=== PATIENT | male | born 1930 | race African-American/Black ===

== ENCOUNTER 2016-03-02 20:01 | Inpatient (IN) ==
[2016-03-02] MEDS ORDERED: *HR* Dextrose 50 % in Water (Syg) 50 ML SYRINGE IVP PRN (21:15)
[2016-03-02] MEDS ORDERED: D5% in Water 1,000 ML IV PRN (21:15)
[2016-03-02] MEDS ORDERED: Dextrose Gel 15 GM PO PRN ×2 (21:15)
[2016-03-02] MEDS ORDERED: Bisacodyl 10 MG RECTAL SUPPOSITORY RC PRN (21:27)
[2016-03-02 22:58] LABS: Bilirubin,Urine Negative (Negative); Blood,Urine Negative (Negative); Clarity,Urine Slightly Cloudy (Clear); Color,Urine Yellow (Yellow); Glucose,Urine (UA) Normal (Normal); Ketones,Urine 15 mg/dL (Negative); Leukocyte Esterase,Urine Negative (Negative); Nitrite,Urine Negative (Negative); PH,Urine 6.5 pH Units (5.0-8.0); Protein,Urine 100 mg/dL (Neg-Trace); Urobilinogen,Urine Normal (Normal)
[2016-03-03 05:53] LABS: Basophils % 0.3 %; Eosinophils # 0.1 K/mcL (0.0-0.6); Eosinophils % 1.4 %; Hematocrit 28.7 % (37.5-50.1); Hemoglobin 8.5 g/dL (12.9-16.9); INR 1.8; Immature Granulocytes % 2.9 % (0-4); Lymphocytes # 0.6 K/mcL (0.6-4.6); Lymphocytes % 7.8 %; Mean Corpuscular HGB Conc 29.6 g/dL (31.6-35.5); Mean Corpuscular Hemoglobin 26.3 pg (28.0-33.3); Mean Corpuscular Volume 88.9 fL (83.0-100.0); Mean Platelet Volume 9.2 fL (9.4-12.4); Monocytes % 12.3 %; Neutrophils # 5.9 K/mcL (1.6-8.9); Platelet Count 235 K/mcL (140-400); Prothrombin Time 20.1 Seconds (9.4-12.1); Red Blood Count 3.23 M/mcL (4.19-5.50); Red Cell Distribution Width 15.7 % (11.5-14.5); Segmented Neutrophils % 75.3 %
[2016-03-03 05:56] LABS: Activated Partial Thrombo Time 28.9 Seconds (26.0-36.0)
[2016-03-03 06:12] LABS: BUN/Creatinine Ratio 12 (6-26); Blood Urea Nitrogen 15 mg/dL (8-26); Calcium 8.7 mg/dL (8.6-10.8); Carbon Dioxide 28 mEq/L (19-29); Chloride 109 mEq/L (98-109); Digoxin 0.8 ng/mL (0.8-2.0); Glucose 157 mg/dL (70-99); Magnesium 1.7 mg/dL (1.6-2.6); Osmolality,Calculated 306 (280-300); Potassium 3.7 mEq/L (3.5-4.5); Sodium 146 mEq/L (136-145); eGFR For African Americans > 60 (> 60); eGFR For Non-African Americans 57 (> 60)
[2016-03-03] MEDS ORDERED: Magnesium Oxide 400 MG TABLET PO SCH (09:00)
[2016-03-03] MEDS ORDERED: Insulin NPH 100 UNIT/ML (x5UNIT) SQ SCH (09:00)
[2016-03-03] MEDS: *HR* Digoxin 0.125 MG TABLET PO SCH (09:25)
[2016-03-03] MEDS: Metoprolol XL (24 HR) Succ 50 MG TAB.ER.24H PO SCH (09:25)
[2016-03-03] MEDS: Diltiazem SR (12hr) 60 MG CAPSULE PO SCH ×2 (09:25→21:40)
[2016-03-03] MEDS: Magnesium Oxide 400 MG TABLET PO SCH (09:26)
[2016-03-03] MEDS: APIXABAN 5 MG TABLET PO SCH ×2 (09:26→21:41)
[2016-03-03] MEDS: *HR* SitaGLIPtin 25 MG TABLET PO SCH (09:26)
[2016-03-03] MEDS: Insulin LISPRO 300 UNITS/3 ML VIAL SQ SCH ×4 (09:27→21:41)
--- NOTE | 2016-03-03 11:00 | Internal Med History&Physical ---
Date of Encounter: 03/03/16 Time of Encounter: 12:20 Assessment and Plan (1) GI bleed Current visit: Yes Status: Acute He had a clipping of the Artery on 1226 2015. He has had 4 blood transfusions. His hemoglobin has been stable. 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 Continue to follow hemoglobin. He is here for rehabilitation due to his deconditioning. PT OT RT and speech therapy consulted Qualifiers: GI bleed type/associated pathology: gastric ulcer Qualified Code(s): K25.4 - Chronic or unspecified gastric ulcer with hemorrhage (2) Acute on chronic systolic congestive heart failure Current visit: No Status: Acute Discharge discharged from [facility] prior to this admission for the GI bleed. Is on a beta jason. His arb has been held due to his hypotension. His Lasix has had to be held to due to his hypotension and renal failure. He is on home oxygen at home and is on oxygen here ef 45-50%. Only not in CHF (3) Atrial fibrillation Current visit: No Status: Chronic He developed A. fib with RVR up at [place] he was placed on digoxin and Cardizem and Toprol he was not anticoagulated in the past due to his risk of a GI bleed. Now that he has developed an acute DVT bilaterally he is on Eliquis Qualifiers: Atrial fibrillation type: paroxysmal Qualified Code(s): I48.0 - Paroxysmal atrial fibrillation (4) COPD (chronic obstructive pulmonary disease) Current visit: No Status: Chronic Not currently an issue he is not on any medication for this. He is a former smoker. He is on oxygen Qualifiers: COPD type: unspecified COPD Qualified Code(s): J44.9 - Chronic obstructive pulmonary disease, unspecified (5) Diabetes mellitus, type 2 Current visit: No Status: Chronic Insulin at [place]. We will continue that we will have the tobacco prevention health educator see him. Normally he would be on a diabetic diet but his appetite is been so poor that he is on a regular diet and frequent whatever he wants Qualifiers: Diabetes mellitus complication status: without complication Diabetes mellitus longterm insulin use: without sustainability engineer use Qualified Code(s): E11.9 - Type 2 diabetes mellitus without complications (6) Hypertension Current visit: No Status: Chronic several medications were held due to the hypotension [place] to the point of being on levophed.. He is off his arb will follow his blood pressures and possibly add back if blood pressures tolerate. Qualifiers: Qualified Code(s): I10 - Essential (primary) hypertension (7) Mixed hyperlipidemia Current visit: Yes Status: Acute Stable continue home medication (8) CHF (congestive heart failure) Current visit: Yes Status: Acute He was discharge in January for an acute CHF exacerbation and his Lasix has been held due to his acute renal failure and hypotension. His blood pressure did not tolerate an CHAPIS inhibitor R. Qualifiers: Congestive heart failure type: combined Congestive heart failure chronicity : chronic Qualified Code(s): I50.42 - Chronic combined systolic (congestive) and diastolic (congestive) heart failure (9) Obesity due to excess calories Current visit: Yes Status: Acute Qualifiers: Obesity severity: morbid Qualified Code(s): E66.01 - Morbid (severe) obesity due to excess calories (10) Depression Current visit: Yes Status: Acute continue His home medication Qualifiers: Depression Type: reactive depression Qualified Code(s): F32.9 - Major depressive disorder, single episode, unspecified (11) Acute blood loss anemia Current visit: Yes Status: Acute Due to the GI bleed gastric ulcer. He received 4 units of blood up at [place]. He has a lot of antibodies in his blood if he needs another transfusion and has to be irradiated. It is hard to get blood for him the total number of [place] they could not transfuse him anymore due to the lack of supply. His blood count has been stable. (12) PIERO (obstructive sleep apnea) Current visit: Yes Status: Acute (13) PUD (peptic ulcer disease) Current visit: Yes Status: Acute He just had an EGD with an artery clipping. Continue PPI (14) CAD (coronary artery disease) Current visit: Yes Status: Acute He is currently without any cardiac symptoms. Qualifiers: Coronary Disease-Associated Artery/Lesion type: [place] artery [place] vs. transplanted heart: [place] heart Associated angina: without angina Qualified Code(s): I25.10 - Atherosclerotic heart disease of [place] coronary artery without angina pectoris (15) OA (osteoarthritis of spine) Current visit: Yes Status: Acute Not a candidate for NSAIDs due to his renal insufficiency and GI bleed. He has a spinal stimulator in place. 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 Check The urine culture. Qualifiers: Prostatic enlargement morphology: unspecified morphology Lower urinary tract symptom presence: symptoms present Qualified Code(s): N40.1 - Benign prostatic hyperplasia with lower urinary tract symptoms (17) Aortic stenosis Current visit: Yes Status: Acute Qualifiers: Cardiac valve disease etiology: etiology unspecified Qualified Code(s): I35.0 - Nonrheumatic aortic (valve) stenosis (18) Ischemia of left lower extremity Current visit: Yes Status: Acute Is on a heparin drip at the [facility]. Vascular surgery was consult that there was nothing that they could do for further intervention due to his comorbidities. he was transitioned to eliquis (19) AVM (arteriovenous malformation) of colon Current visit: Yes Status: Acute he did Not have lower endoscopy this past admission (20) Macular degeneration Current visit: Yes Status: Acute Internal Medicine - H&P: HPI Chief complaint: i want to get home, here for rehab Admitted From: Hospital to Hospital Transfer Plans for Post Hospital Care: Home History of present illness: Mr. France is a 85 year old male With a history of anemia due to chronic GI blood loss. He presents from [place] after a prolonged course of a GI bleed. In the office in January found to have a hemoglobin of 6 it was arranged for outpatient transfusion at that time, but he has a lot of antibodies in his blood and it is hard to type and cross him. The blood was supposed to come the next day from [place] when he developed bright red blood per rectum. at That he was sent to the emergency room and transferred to [place] for further care. He had 4 units of packed red blood cells they were having difficulty getting transfusions due to his antibody in the low blood supply. He had an EGD on 02/15 that showed a gastric ulcer and it was the artery was clipped at that time. He was on a PPI. He has a history of AV malformations of the colon and has undergone a colon resection for those in the past. Not have a colonoscopy this admission. While there he developed a right common femoral DVT. He had an IVC filter placed on February 18. He was found to have edema of the left lower extremity and was found after the IVC filter to have a left external iliacs acute DVT. at Time he had undergone the clipping of the gastric artery and his hemoglobin was stable and it was felt necessary to further anticoagulate him for the DVT that progressed with the IVC filter . he was placed on a heparin drip because he also had ischemia of the left lower extremity. He was transitioned over to Eliqu. Hemoglobin has remained stable at 8.1,8.7,8.5. He has become severely deconditioned he has trouble getting from the bed to the chair. Recommend that he come here for PT OT. Difficulty swallowing and they changed his diet to soft and chopped meats. He had a speech evaluation today that was normal and he was advanced to a regular diet. His appetite has not been great palliative care was consult to Dr. Francesca kenny and him made him DNR CC arrest. Decided not to do a PEG tube. He was also hypotensive up at [place] and several of his blood pressure medicines were held and he was on levo fed and while on that he developed the lower limb ischemia on the left had A. fib with RVR up at [place] as well which was controlled with metoprolol and digoxin and Cardizem Past Med Surg Social Fam HX - Past Medical History Medical history: arthritis (of the spine with an implanted stimulator), atrial fibrillation, CHF, COPD, coronary artery disease, DVT (01/2016 r com femoral, had ivc filter then left external iliac), diabetes, GERD, GI bleed (bleeding ulcer clipped 02/16/16, hx of avm of colon), hyperlipidemia, hypertension, peripheral artery disease (left lower ext), renal disease, valvular heart disease (aortic stenosis), other (macular degeneration, obesity, anemia due to the gi bleed) Psychiatric history: depression - Past Surgical History Surgical History: colectomy (for avm and bleeding), IVC Filter (02/19/16), pacemaker (02/16/16 egd with gastric ulcer clipping, 01/05/15 spinal stimulator) - Social History Smoking Status: Former smoker Smokeless Tobacco Status: No Alcohol use: rarely Drug use: none - Family History Mother Living Status: Cause of : cerebral hemorrhage Father Living Status: Age at : 87 Internal Medicine - H&P: Meds Albuterol Sulfate [Albuterol Inhaler] 2 puff IH Q4H PRN 01/15/16 [History] Amlodipine Besylate 10 mg PO DAILY 01/15/16 [History] Atorvastatin Calcium [Lipitor] 20 mg PO DAILY 01/15/16 [History] Citalopram Hydrobromide [Citalopram HBr] 20 mg PO DAILY 01/15/16 [History] Ferrous Sulfate 325 mg PO TID 01/15/16 [History] Glimepiride [Amaryl] 2 mg PO QAM 01/15/16 [History] Losartan Potassium [Cozaar] 50 mg PO BID 01/15/16 [History] Metoprolol Succinate 100 mg PO DAILY 01/15/16 [History] Omeprazole [PriLOSEC] 20 mg PO BID 01/15/16 [History] Potassium Chloride [Klor-Con Sprinkle] 8 meq PO DAILY 01/15/16 [History] Sitagliptin Phosphate [Januvia] 50 mg PO DAILY 01/15/16 [History] Diltiazem [Cardizem] 60 mg PO Q6HR #120 tablet 02/06/16 [Rx] Furosemide [Lasix] 40 mg PO DAILY 60 Days 02/06/16 [Rx] Levofloxacin 500 mg PO DAILY #3 tablet 02/06/16 [Rx] Dulcolax 10 mg DAILY PRN 03/03/16 [History] Eliquis 5 mg PO BID 03/03/16 [History] Insulin LISPRO [Humalog Kwikpen U-100] 1 - 30 unit SQ ACHS 03/03/16 [History] Insulin NPH [HumuLIN NPH] 5 units SQ BID 03/03/16 [History] Magnesium Oxide [Magnesium] 400 mg PO 03/03/16 [History] Pantoprazole Sodium [Protonix] 40 mg PO DAILY 03/03/16 [History] Allergies aspirin [ASA] Allergy (Verified 02/02/16 04:08) Nose Bleed NSAIDS (Non-Steroidal Anti-Inflamma Adverse Reaction (Unknown, Verified 04:08) Nose Bleed bleeding nsaids Allergy (Uncoded 02/02/16 04:08) Nose Bleed All Systems PM: A 10-system review of systems was performed and is negative for pertinent findings except as documented above in the HPI. - Constitutional Constitutional: anorexia, fatigue, lethargy, weakness (generalized), weight loss - EENT Eyes: no change in vision Nose, mouth and throat: no sore throat - Cardiovascular Cardiovascular ROS IM: dyspnea (bseline), no chest pain, no lightheadedness, no palpitations, no syncope - Respiratory Respiratory: no cough, no wheezing - Gastrointestinal Gastrointestinal: melena (dark with the iron), no abdominal pain, no constipation, no diarrhea, no hematochezia (since [place]), no nausea, no vomiting - Genitourinary Genitourinary ROS male: urinary incontinence, no dysuria, no urinary frequency - Musculoskeletal Musculoskeletal ROS IM: arthralgias (his left did hurt it is not hurting now) - Integumentary Integumentary IM: sores (on the left leg seeping), no rash - Neurological Neurological ROS: no dizziness, no frequent falls - Psychiatric Psychiatric: irritability - Constitutional Vitals: Temp Pulse Resp BP Pulse Ox 98.1 F 105 18 147/74 94 L 03/03/16 07:00 03/03/16 07:00 03/03/16 07:00 03/03/16 07:00 03/03/16 07:00 General appearance: Present: A&O X 3, morbidly obese (but obvious weight loss), answers questions appropriately (but he has a very dry sense of humor) - Head Head exam: Present: atraumatic, normocephalic - Eye Eye exam: Present: EOMI, PERRL, sclera anicteric - ENT ENT exam: Present: mucous membranes moist - Respiratory Respiratory exam: Present: CTAB - Cardiovascular Cardiovascular exam: Present: irregular rhythm, systolic murmur - GI/Abdominal GI/Abdominal exam: Present: normal bowel sounds, soft, no peritoneal signs. Absent: distended (exam limited bybody habitius), guarding, mass, rebound, tenderness - Extremities Exam Extremities exam: Present: normal capillary refill, pedal edema (left >right), warm (both are warm today. it was noted to be a cold left ext at [place]) - Skin Skin exam: Present: vesicles (on the left leg with large skin sloughing 10 cm x 2 and several bulla on the left leg). Absent: rash Internal Med - H&P Results - Labs CBC & Chem 7: 03/03/16 05:25 03/03/16 05:25 Labs: Short CBC 03/03/16 Range/Units 05:25 WBC 7.8 (4.3-11.1) K/mcL Hgb 8.5 L (12.9-16.9) g/dL Hct 28.7 L (37.5-50.1) % Plt Count 235 (140-400) K/mcL Neutrophils # 5.9 (1.6-8.9) K/mcL BMP 03/03/16 05:25 Sodium 146 H Potassium 3.7 Chloride 109 Carbon Dioxide 28 BUN 15 Creatinine 1.21 Glucose 157 H Calcium 8.7 Urine 03/02/16 Range/Units 21:14 Urine Color Yellow (Yellow) Urine Clarity Slightly Cloudy A (Clear) Urine pH 6.5 (5.0-8.0) pH Units Ur Specific [place] 1.020 (1.010-1.025) Urine Protein 100 H (Neg-Trace) mg/dL Urine Glucose (UA) Normal (Normal) mg/dL
--- NOTE | 2016-03-04 07:43 | Internal Med Progress Note ---
Date of Encounter: 03/04/16 Time of Encounter: 07:43 - Assessment and plan (1) GI bleed Current Visit: Yes Status: Acute Assessment and plan: History of recent upper G.I. bleed, on PPI. Hemoglobin has been stable. Recheck on Monday. No melena or hematochezia Qualifiers: GI bleed type/associated pathology: gastric ulcer Qualified Code(s): K25.4 - Chronic or unspecified gastric ulcer with hemorrhage (2) Acute on chronic systolic congestive heart failure Current Visit: No Status: Chronic Assessment and plan: Patient has on a beta jason, his ARB was held data hypotension. Lasix was held due to hypotension and renal failure. Oxygen saturations are in the 90s typically on room air. Lungs are clear and no obvious signs of congestive heart failure. No angina. (3) Atrial fibrillation Current Visit: Yes Status: Chronic Assessment and plan: Atrial fibrillation. Rate controlled with Lanoxin and Cardizem and Toprol. Previously was not anticoagulated because of G.I. bleed and anemia, now has acute DVT and is now on Eliquis Qualifiers: Atrial fibrillation type: paroxysmal Qualified Code(s): I48.0 - Paroxysmal atrial fibrillation (4) COPD (chronic obstructive pulmonary disease) Current Visit: Yes Status: Chronic Assessment and plan: Chronic COPD, a former smoker. Typically on room air. No acute pulmonary symptoms and lungs are clear. Qualifiers: COPD type: unspecified COPD Qualified Code(s): J44.9 - Chronic obstructive pulmonary disease, unspecified (5) Diabetes mellitus, type 2 Current Visit: Yes Status: Chronic Assessment and plan: Dr. Teague wishes for him to be a regular diet without restriction because of his poor appetite. Blood sugars are being followed and are reasonable. Qualifiers: Diabetes mellitus complication status: without complication Diabetes mellitus keno terminal operator insulin use: without keno terminal operator use Qualified Code(s): E11.9 - Type 2 diabetes mellitus without complications (6) Hypertension Current Visit: Yes Status: Chronic Assessment and plan: Hypertension is under good control. No hypotension currently. Qualifiers: Qualified Code(s): I10 - Essential (primary) hypertension (7) Mixed hyperlipidemia Current Visit: Yes Status: Chronic (8) CHF (congestive heart failure) Current Visit: Yes Status: Chronic Assessment and plan: History of congestive heart failure exacerbation, but Lasix and some meds have been held because a renal failure and hypotension. No obvious congestive heart failure currently. Qualifiers: Congestive heart failure type: combined Congestive heart failure chronicity : chronic Qualified Code(s): I50.42 - Chronic combined systolic (congestive) and diastolic (congestive) heart failure (9) Obesity due to excess calories Current Visit: Yes Status: Chronic Qualifiers: Obesity severity: morbid Qualified Code(s): E66.01 - Morbid (severe) obesity due to excess calories (10) Depression Current Visit: Yes Status: Chronic Qualifiers: Depression Type: reactive depression Qualified Code(s): F32.9 - Major depressive disorder, single episode, unspecified (11) Acute blood loss anemia Current Visit: Yes Status: Acute Assessment and plan: No obvious re-bleed. (12) PIERO (obstructive sleep apnea) Current Visit: Yes Status: Chronic (13) PUD (peptic ulcer disease) Current Visit: Yes Status: Acute Assessment and plan: No acute symptoms. Recent EGD and artery clipping. Continue PPI. (14) CAD (coronary artery disease) Current Visit: Yes Status: Acute Assessment and plan: No angina or congestive heart failure noted. Atrial fibrillation is rate controlled. Qualifiers: Coronary Disease-Associated Artery/Lesion type: [place] artery [place] vs. transplanted heart: [place] heart Associated angina: without angina Qualified Code(s): I25.10 - Atherosclerotic heart disease of [place] coronary artery without angina pectoris (15) OA (osteoarthritis of spine) Current Visit: Yes Status: Chronic Assessment and plan: Patient has a spinal stimulator as he is not a candidate for an NSAID due to renal insufficiency in G.I. bleed. 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 Urine test was negative Qualifiers: Prostatic enlargement morphology: unspecified morphology Lower urinary tract symptom presence: symptoms present Qualified Code(s): N40.1 - Benign prostatic hyperplasia with lower urinary tract symptoms (17) Aortic stenosis Current Visit: Yes Status: Chronic Assessment and plan: History of nonrheumatic aortic valve stenosis. No CHF for angina. Qualifiers: Cardiac valve disease etiology: etiology unspecified Qualified Code(s): I35.0 - Nonrheumatic aortic (valve) stenosis (18) Ischemia of left lower extremity Current Visit: Yes Status: Acute Assessment and plan: Left lower extremity is edematous, continued gauze wrap which is clean and dry. I did not evaluate his leg. Has been seen by wound clinic. Both feet are warm and dry (19) AVM (arteriovenous malformation) of colon Current Visit: Yes Status: Acute (20) Macular degeneration Current Visit: Yes Status: Acute (21) Physical deconditioning Current Visit: Yes Status: Acute Assessment and plan: He continues with PT, OT and recreational therapy as well as needing longterm because of deconditioning. Continue the same for now. - Subjective Interval history: Patient states that he slept well last night. He denies any cardiac or respiratory symptoms. He denies any significant pain in his legs. He seems to be eating well. He states he is comfortable. - Constitutional Vitals: Temp Pulse Resp BP Pulse Ox 98.7 F 78 18 151/53 93 L 03/04/16 07:21 03/04/16 07:21 03/04/16 07:21 03/04/16 07:21 03/04/16 07:21 General appearance: Present: A&O X 3, morbidly obese, answers questions appropriately - Respiratory Respiratory exam: Present: CTAB - Cardiovascular Cardiovascular exam: Present: irregular rhythm, +S1, +S2, systolic murmur (2-3/ 6 systolic murmur at the outlet and left sternal border) - GI/Abdominal GI/Abdominal exam: Present: soft. Absent: hepatomegaly, tenderness - Extremities Exam Additional comments: Left lower extremity is swollen compared to the right, mild pitting edema in the pre-tibial and dorsal foot areas. Gauze wrap on the mid-tibial region, I did not evaluate the wound today. Both feet are warm and dry. No localizing tenderness. No skin breakdown noted. Right lower extremity appears normal and no calf tenderness. Internal Medicine: Result - Labs CBC & Chem 7: 03/03/16 05:25 03/03/16 05:25 Labs: BMP 03/03/16 05:25 Sodium 146 H Potassium 3.7 Chloride 109 Carbon Dioxide 28 BUN 15 Creatinine 1.21 Glucose 157 H Calcium 8.7 - ABG Interpretation ABG results: PT/INR, D-dimer PT 20.1 Seconds (9.4-12.1) H 03/03/16 05:25 Consult Discharge Plan - Plan Referrals: Shira Teague MD [Primary Care Provider] -
[2016-03-04] MEDS: Magnesium Oxide 400 MG TABLET PO SCH (08:32)
[2016-03-04] MEDS: Insulin LISPRO 300 UNITS/3 ML VIAL SQ SCH ×4 (08:32→22:00)
[2016-03-04] MEDS: APIXABAN 5 MG TABLET PO SCH ×2 (08:32→22:04)
[2016-03-04] MEDS: *HR* SitaGLIPtin 25 MG TABLET PO SCH (08:33)
[2016-03-04] MEDS: Metoprolol XL (24 HR) Succ 50 MG TAB.ER.24H PO SCH (08:33)
[2016-03-04] MEDS: Diltiazem SR (12hr) 60 MG CAPSULE PO SCH ×2 (08:33→22:05)
[2016-03-04] MEDS: *HR* Digoxin 0.125 MG TABLET PO SCH (08:33)
[2016-03-05] MEDS: Insulin LISPRO 300 UNITS/3 ML VIAL SQ SCH ×4 (08:24→20:55)
[2016-03-05] MEDS: *HR* SitaGLIPtin 25 MG TABLET PO SCH (08:25)
[2016-03-05] MEDS: *HR* Digoxin 0.125 MG TABLET PO SCH (08:25)
[2016-03-05] MEDS: Diltiazem SR (12hr) 60 MG CAPSULE PO SCH ×2 (08:25→20:56)
[2016-03-05] MEDS: Magnesium Oxide 400 MG TABLET PO SCH (08:26)
[2016-03-05] MEDS: APIXABAN 5 MG TABLET PO SCH ×2 (08:26→20:56)
[2016-03-05] MEDS: Metoprolol XL (24 HR) Succ 50 MG TAB.ER.24H PO SCH (08:26)
[2016-03-05] MEDS ORDERED: Insulin NPH 300 UNIT/3 ML per UNIT SQ ONE (11:22)
--- NOTE | 2016-03-05 13:59 | Internal Med Progress Note ---
Date of Encounter: 03/05/16 Time of Encounter: 13:15 - Assessment and plan (1) AVM (arteriovenous malformation) of colon Current Visit: Yes Status: Acute Assessment and plan: No signs of active bleeding. He is scheduled get repeat labs in 8 hours. (2) Acute blood loss anemia Current Visit: Yes Status: Acute Assessment and plan: Check labs as above. (3) CAD (coronary artery disease) Current Visit: Yes Status: Acute Assessment and plan: He denies symptoms currently. Qualifiers: Coronary Disease-Associated Artery/Lesion type: [place] artery [place] vs. transplanted heart: [place] heart Associated angina: without angina Qualified Code(s): I25.10 - Atherosclerotic heart disease of [place] coronary artery without angina pectoris (4) GI bleed Current Visit: Yes Status: Acute Assessment and plan: Check labs as above. Today with me he denies hematemesis, melena, or gross blood per rectum. Qualifiers: GI bleed type/associated pathology: gastric ulcer Qualified Code(s): K25.4 - Chronic or unspecified gastric ulcer with hemorrhage (5) Ischemia of left lower extremity Current Visit: Yes Status: Acute (6) PUD (peptic ulcer disease) Current Visit: Yes Status: Acute Assessment and plan: No evidence of acute bleeding. (7) Physical deconditioning Current Visit: Yes Status: Acute (8) Atrial fibrillation Current Visit: Yes Status: Chronic Assessment and plan: Rate is controlled on digoxin, diltiazem and metoprolol. To auscultation his rhythm sounds regular. Qualifiers: Atrial fibrillation type: paroxysmal Qualified Code(s): I48.0 - Paroxysmal atrial fibrillation (9) CHF (congestive heart failure) Current Visit: Yes Status: Chronic Qualifiers: Congestive heart failure type: combined Congestive heart failure chronicity : chronic Qualified Code(s): I50.42 - Chronic combined systolic (congestive) and diastolic (congestive) heart failure (10) COPD (chronic obstructive pulmonary disease) Current Visit: Yes Status: Chronic Assessment and plan: Lungs are clear today. He is breathing comfortably on room air. O2 sat is 93%. Qualifiers: COPD type: unspecified COPD Qualified Code(s): J44.9 - Chronic obstructive pulmonary disease, unspecified (11) Depression Current Visit: Yes Status: Chronic Assessment and plan: Continue current medication. I encouraged him that he is making good progress at this point in the hope is that he'll go home. Qualifiers: Depression Type: reactive depression Qualified Code(s): F32.9 - Major depressive disorder, single episode, unspecified (12) Diabetes mellitus, type 2 Current Visit: Yes Status: Chronic Assessment and plan: Blood sugars are 172 and 181. Tick 80% of his breakfast today which is an improvement. Continue NPH, lispro and sitagliptin. Qualifiers: Diabetes mellitus complication status: without complication Diabetes mellitus half-way insulin use: without casket assembler metal use Qualified Code(s): E11.9 - Type 2 diabetes mellitus without complications (13) Hypertension Current Visit: Yes Status: Chronic Assessment and plan: Blood pressures 155/63 and 119/62 are acceptable. Qualifiers: Qualified Code(s): I10 - Essential (primary) hypertension (14) PIERO (obstructive sleep apnea) Current Visit: Yes Status: Chronic (15) Pneumonia Current Visit: No Status: Acute Assessment and plan: Lungs are clear. He has completed his course of Levaquin. Qualifiers: Pneumonia type: due to unspecified organism Laterality: bilateral Lung location: lower lobe of lung Qualified Code(s): J18.9 - Pneumonia, unspecified organism (16) Acute on chronic systolic congestive heart failure Current Visit: No Status: Chronic Assessment and plan: This appears controlled on his current medications. (17) Acute kidney injury Current Visit: No Status: Resolved (18) Acute respiratory failure with hypoxia Current Visit: No Status: Resolved Assessment and plan: O2 sats are acceptable. - Time Spent With Patient Greater than 35 minutes - Subjective Interval history: No complaints other than that he wants to go home. Denies palpitations, SOB or chest discomfort. Left leg dressing was changed by night warehouse manager, dayshift nurse received the report that there was some drainage but no signs of infection. Nursing reported the 880% of his breakfast. I spoke with the therapist and his nurse at the bedside and they say he is definitely making progress with his physical therapy. His mentation has been clear. Fingerstick blood sugars been 172 and 181. Heart rate's been controlled at 69 and 71 bpm. - Constitutional Vitals: Temp Pulse Resp BP Pulse Ox 98.3 F 69 18 119/62 93 L 03/05/16 11:28 03/05/16 12:14 03/05/16 12:14 03/05/16 12:14 03/05/16 12:14 General appearance: Present: A&O X 3, morbidly obese, no acute distress, answers questions appropriately - Head Head exam: Present: atraumatic, normocephalic - Respiratory Respiratory exam: Present: CTAB. Absent: accessory muscle use, rales, rhonchi, wheezes - Cardiovascular Cardiovascular exam: Present: RRR, +S1, +S2, systolic murmur. Absent: diastolic murmur, gallop, rubs Additional comments: Rhythm sounds regular to auscultation. He has a 3/6 systolic ejection murmur best heard at the right upper sternal border with radiation toward the carotids consistent with his aortic stenosis. - GI/Abdominal GI/Abdominal exam: Present: normal bowel sounds, soft, no peritoneal signs. Absent: distended, tenderness - Extremities Exam Extremities exam: Present: pedal edema, warm. Absent: calf tenderness, cyanotic , tenderness Additional comments: He has significant pitting edema to the left lower extremity. He has a clean dressing distally on the left lower extremity with no fluid visible in the dressing material having seeped through. - Neurological Exam Neurological exam: Present: oriented X3 (He is a bit unhappy, expressing that he really wants to go home. ), no focal deficits. Absent: pronater drift, facial droop, speech deficit Internal Medicine: Result - Labs CBC & Chem 7: 03/03/16 05:25 03/03/16 05:25 - ABG Interpretation ABG results: PT/INR, D-dimer PT 20.1 Seconds (9.4-12.1) H 03/03/16 05:25 Consult Discharge Plan - Plan Referrals: Shira Teague MD [Primary Care Provider] -
[2016-03-06] MEDS: Insulin LISPRO 300 UNITS/3 ML VIAL SQ SCH ×4 (07:57→21:01)
[2016-03-06] MEDS: Metoprolol XL (24 HR) Succ 50 MG TAB.ER.24H PO SCH (08:09)
[2016-03-06] MEDS: Diltiazem SR (12hr) 60 MG CAPSULE PO SCH ×2 (08:09→21:11)
[2016-03-06] MEDS: APIXABAN 5 MG TABLET PO SCH ×2 (08:10→21:11)
[2016-03-06] MEDS: *HR* SitaGLIPtin 25 MG TABLET PO SCH (08:10)
[2016-03-06] MEDS: *HR* Digoxin 0.125 MG TABLET PO SCH (08:10)
--- NOTE | 2016-03-06 12:31 | Internal Med Progress Note ---
Date of Encounter: 03/06/16 Time of Encounter: 12:15 - Assessment and plan (1) AVM (arteriovenous malformation) of colon Current Visit: Yes Status: Acute (2) Acute blood loss anemia Current Visit: Yes Status: Acute Assessment and plan: Check labs in a.m. No signs of further bleeding. (3) CAD (coronary artery disease) Current Visit: Yes Status: Acute Assessment and plan: He denies symptoms currently. Qualifiers: Coronary Disease-Associated Artery/Lesion type: [place] artery [place] vs. transplanted heart: [place] heart Associated angina: without angina Qualified Code(s): I25.10 - Atherosclerotic heart disease of [place] coronary artery without angina pectoris (4) GI bleed Current Visit: Yes Status: Acute Assessment and plan: Check labs as above. Today with me he denies hematemesis, melena, or gross blood per rectum. Qualifiers: GI bleed type/associated pathology: gastric ulcer Qualified Code(s): K25.4 - Chronic or unspecified gastric ulcer with hemorrhage (5) Ischemia of left lower extremity Current Visit: Yes Status: Acute (6) PUD (peptic ulcer disease) Current Visit: Yes Status: Acute (7) Physical deconditioning Current Visit: Yes Status: Acute Assessment and plan: He is making good progress with therapy. I am told that social work is considering prison placement and is exploring that option. (8) Atrial fibrillation Current Visit: Yes Status: Chronic Assessment and plan: Rate is controlled on his current medications. Qualifiers: Atrial fibrillation type: paroxysmal Qualified Code(s): I48.0 - Paroxysmal atrial fibrillation (9) CHF (congestive heart failure) Current Visit: Yes Status: Chronic Assessment and plan: Respiratory symptoms are well controlled. Edema is at baseline. Qualifiers: Congestive heart failure type: combined Congestive heart failure chronicity : chronic Qualified Code(s): I50.42 - Chronic combined systolic (congestive) and diastolic (congestive) heart failure (10) COPD (chronic obstructive pulmonary disease) Current Visit: Yes Status: Chronic Assessment and plan: Tolerating room air well. Pulmonary exam is good. Qualifiers: COPD type: unspecified COPD Qualified Code(s): J44.9 - Chronic obstructive pulmonary disease, unspecified (11) Depression Current Visit: Yes Status: Chronic Assessment and plan: Mood is improved today, he is more upbeat. Qualifiers: Depression Type: reactive depression Qualified Code(s): F32.9 - Major depressive disorder, single episode, unspecified (12) Diabetes mellitus, type 2 Current Visit: Yes Status: Chronic Assessment and plan: Blood sugars are well controlled on current meds. Qualifiers: Diabetes mellitus complication status: without complication Diabetes mellitus custodial insulin use: without terminal gauger supervisor use Qualified Code(s): E11.9 - Type 2 diabetes mellitus without complications (13) Hypertension Current Visit: Yes Status: Chronic Assessment and plan: Blood pressure is at goal at 136/51. Qualifiers: Qualified Code(s): I10 - Essential (primary) hypertension (14) PIERO (obstructive sleep apnea) Current Visit: Yes Status: Chronic (15) Pneumonia Current Visit: No Status: Acute Qualifiers: Pneumonia type: due to unspecified organism Laterality: bilateral Lung location: lower lobe of lung Qualified Code(s): J18.9 - Pneumonia, unspecified organism (16) Acute on chronic systolic congestive heart failure Current Visit: No Status: Chronic (17) DVT (deep venous thrombosis) Current Visit: Yes Status: Acute Assessment and plan: Continue Eliquis. Qualifiers: DVT location: lower extremity Affected thrombotic vein of extremity: femoral Laterality: right Chronicity: acute Qualified Code(s): I82.411 - Acute embolism and thrombosis of right femoral vein - Time Spent With Patient 25 - 35 minutes - Subjective Interval history: .He has no complaints today. He says he is doing well. He tells me his appetite is good. He denies shortness of breath even with his O2 sat at 90%. He states he 's been on room air since I saw him yesterday, at home he only occasionally uses his nasal O2. he denies palpitations or chest discomfort. He is not aware of any upper or lower signs of GI bleeding such as hematemesis, melena or blood per rectum. He feels his therapy is going well. Fingerstick blood sugars have been 136, 162, 158. Blood pressure is good at 136/51. Pulse by nursing has been noted to be 70 and then 74 bpm and regular. O2 sats of 90 in the 98% on room air. He's had a bowel movement yesterday and today. Lispro sliding scale coverage was 0, 2, and 2 units. He is on NPH only 5 units. - Constitutional Vitals: Temp Pulse Resp BP Pulse Ox 98.4 F 74 16 136/51 98 03/06/16 07:00 03/06/16 11:01 03/06/16 07:00 03/06/16 07:00 03/06/16 11:01 General appearance: Present: cooperative, A&O X 3, morbidly obese, no acute distress, answers questions appropriately Exam: He is more upbeat and pleasant today. He is eating his lunch and has eaten pretty much everything on the tray. - Respiratory Respiratory exam: Present: CTAB. Absent: accessory muscle use, rales, respiratory distress, rhonchi, wheezes - Cardiovascular Cardiovascular exam: Present: RRR, +S1, +S2, systolic murmur. Absent: diastolic murmur, gallop, irregular rhythm, rubs Additional comments: 3 out of 6 right upper sternal border murmur unchanged from yesterday. - Extremities Exam Extremities exam: Present: pedal edema, warm, radial pulses palpable and symetrical. Absent: calf tenderness, cyanotic Additional comments: He has mild to moderate pitting edema in the right lower extremity. Left lower extremity has a lot more edema is definitely larger than the right side. Dressing still intact and clean. Exam appears pretty much unchanged from yesterday. Internal Medicine: Result - Labs CBC & Chem 7: 03/03/16 05:25 03/03/16 05:25 - ABG Interpretation ABG results: PT/INR, D-dimer PT 20.1 Seconds (9.4-12.1) H 03/03/16 05:25 Consult Discharge Plan - Plan Referrals: Shira Teague MD [Primary Care Provider] -
[2016-03-07 06:13] LABS: Basophils % 0.5 %; Eosinophils # 0.3 K/mcL (0.0-0.6); Hematocrit 25.8 % (37.5-50.1); Hemoglobin 7.9 g/dL (12.9-16.9); Immature Granulocytes % 2.6 % (0-4); Lymphocytes # 0.7 K/mcL (0.6-4.6); Lymphocytes % 8.9 %; Mean Corpuscular HGB Conc 30.6 g/dL (31.6-35.5); Mean Corpuscular Hemoglobin 26.2 pg (28.0-33.3); Mean Corpuscular Volume 85.4 fL (83.0-100.0); Mean Platelet Volume 9.3 fL (9.4-12.4); Monocytes # 0.9 K/mcL (0.0-1.3); Monocytes % 10.5 %; Neutrophils # 6.2 K/mcL (1.6-8.9); Nucleated Red Blood Cells 0.2 /100 WBC (0); Platelet Count 262 K/mcL (140-400); Red Blood Count 3.02 M/mcL (4.19-5.50); Red Cell Distribution Width 15.5 % (11.5-14.5); Segmented Neutrophils % 74.5 %
[2016-03-07 06:21] LABS: BUN/Creatinine Ratio 13 (6-26); Blood Urea Nitrogen 17 mg/dL (8-26); Calcium 8.8 mg/dL (8.6-10.8); Carbon Dioxide 25 mEq/L (19-29); Chloride 109 mEq/L (98-109); Glucose 147 mg/dL (70-99); Magnesium 1.6 mg/dL (1.6-2.6); Osmolality,Calculated 298 (280-300); Potassium 3.7 mEq/L (3.5-4.5); Sodium 142 mEq/L (136-145); eGFR For African Americans > 60 (> 60); eGFR For Non-African Americans 50 (> 60)
--- NOTE | 2016-03-07 07:13 | Internal Med Progress Note ---
Date of Encounter: 03/07/16 Time of Encounter: 07:06 - Assessment and plan (1) GI bleed Current Visit: Yes Status: Acute Assessment and plan: History of G.I. bleed in his count has been stable in the 8 g range, now 7.9. No active bleeding sites noted. Vitals are stable. Will recheck and follow. Qualifiers: GI bleed type/associated pathology: gastric ulcer Qualified Code(s): K25.4 - Chronic or unspecified gastric ulcer with hemorrhage (2) Acute on chronic systolic congestive heart failure Current Visit: No Status: Chronic Assessment and plan: His weight has been stable since admission (I believe the admission weight was an error). He appears to be less edematous and left lower extremity. His lungs are clear. No obvious congestive heart failure. (3) Atrial fibrillation Current Visit: Yes Status: Chronic Assessment and plan: Atrial fibrillation is rate controlled. He is on Eliquis for DVT Qualifiers: Atrial fibrillation type: paroxysmal Qualified Code(s): I48.0 - Paroxysmal atrial fibrillation (4) COPD (chronic obstructive pulmonary disease) Current Visit: Yes Status: Chronic Assessment and plan: His lungs are clear, no dyspnea, and has only occasional supplemental oxygen requirements Qualifiers: COPD type: unspecified COPD Qualified Code(s): J44.9 - Chronic obstructive pulmonary disease, unspecified (5) Diabetes mellitus, type 2 Current Visit: Yes Status: Chronic Assessment and plan: Sugars have been under good control typically in the 100s. Qualifiers: Diabetes mellitus complication status: without complication Diabetes mellitus snf insulin use: without snf use Qualified Code(s): E11.9 - Type 2 diabetes mellitus without complications (6) Hypertension Current Visit: Yes Status: Chronic Assessment and plan: His blood pressure is under good control. Previously he had hypotension in [place]. His Lasix and amlodipine was held. I have not restarted either one, though he may need the Lasix for edema control restarted. Qualifiers: Qualified Code(s): I10 - Essential (primary) hypertension (7) Mixed hyperlipidemia Current Visit: Yes Status: Chronic (8) CHF (congestive heart failure) Current Visit: Yes Status: Chronic Assessment and plan: No angina or CHF noted. Qualifiers: Congestive heart failure type: combined Congestive heart failure chronicity : chronic Qualified Code(s): I50.42 - Chronic combined systolic (congestive) and diastolic (congestive) heart failure (9) Obesity due to excess calories Current Visit: Yes Status: Chronic Qualifiers: Obesity severity: morbid Qualified Code(s): E66.01 - Morbid (severe) obesity due to excess calories (10) Depression Current Visit: Yes Status: Chronic Qualifiers: Depression Type: reactive depression Qualified Code(s): F32.9 - Major depressive disorder, single episode, unspecified (11) Acute blood loss anemia Current Visit: Yes Status: Acute Assessment and plan: His hemoglobin dipped slightly to 7.9. Will recheck tomorrow. (12) PIERO (obstructive sleep apnea) Current Visit: Yes Status: Chronic (13) PUD (peptic ulcer disease) Current Visit: Yes Status: Acute (14) CAD (coronary artery disease) Current Visit: Yes Status: Acute Assessment and plan: No angina or CHF. Qualifiers: Coronary Disease-Associated Artery/Lesion type: [place] artery [place] vs. 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, lumbar region (16) BPH (benign prostatic hypertrophy) Current Visit: Yes Status: Chronic Qualifiers: Prostatic enlargement morphology: unspecified morphology Lower urinary tract symptom presence: symptoms present Qualified Code(s): N40.1 - Benign prostatic hyperplasia with lower urinary tract symptoms (17) Aortic stenosis Current Visit: Yes Status: Chronic Qualifiers: Cardiac valve disease etiology: etiology unspecified Qualified Code(s): I35.0 - Nonrheumatic aortic (valve) stenosis (18) Ischemia of left lower extremity Current Visit: Yes Status: Acute Assessment and plan: Left lower extremity is warm and dry. He denies any pain. (19) AVM (arteriovenous malformation) of colon Current Visit: Yes Status: Acute (20) Macular degeneration Current Visit: Yes Status: Acute (21) Physical deconditioning Current Visit: Yes Status: Acute Assessment and plan: Reportedly he is advancing with his PT and OT. Continue the same. - Subjective Interval history: Patient denies any chest pain, shortness of breath, abdominal pain, melena, blood per rectum. He said yesterday he was out of bed despite not having physical therapy on Monday. He has no complaints from me. - Constitutional Vitals: Temp Pulse Resp BP Pulse Ox 98.7 F 82 14 139/67 92 L 03/06/16 19:00 03/06/16 19:00 03/06/16 19:00 03/06/16 19:00 03/06/16 19:00 General appearance: Present: cooperative, A&O X 3, morbidly obese, no acute distress, answers questions appropriately - Respiratory Respiratory exam: Present: CTAB - Cardiovascular Cardiovascular exam: Present: irregular rhythm, +S1, +S2, systolic murmur (2 to 3/6 systolic murmur, rate controlled) - GI/Abdominal GI/Abdominal exam: Present: soft. Absent: tenderness - Extremities Exam Additional comments: Right lower extremity is nontender and no edema. It is warm and dry. Left lower extremity has the bulky dressing recently changed and there is no drainage. His foot is edematous but warm and nontender. Less edema in his tibial and thigh area compared to Monday. There is no tenderness in lower leg. (The dressing was just changed before I arrived and I will check it when it needs to be changed this afternoon) Internal Medicine: Result - Labs CBC & Chem 7: 03/07/16 05:30 03/07/16 05:30 Labs: Short CBC 03/07/16 Range/Units 05:30 WBC 8.3 (4.3-11.1) K/mcL Hgb 7.9 L (12.9-16.9) g/dL Hct 25.8 L (37.5-50.1) % Plt Count 262 (140-400) K/mcL Neutrophils # 6.2 (1.6-8.9) K/mcL BMP 03/07/16 05:30 Sodium 142 Potassium 3.7 Chloride 109 Carbon Dioxide 25 BUN 17 Creatinine 1.35 H Glucose 147 H Calcium 8.8 Hemoglobin has slipped to 7.9 from 8 range. His creatinine has bumped up a bit. - ABG Interpretation ABG results: PT/INR, D-dimer PT 20.1 Seconds (9.4-12.1) H 03/03/16 05:25 - VTE Documentation of Mechanical Device: Graduated compression elastic hosiery Consult Discharge Plan - Plan Referrals: Shira Teague MD [Primary Care Provider] -
[2016-03-07] MEDS: *HR* Digoxin 0.125 MG TABLET PO SCH (08:26)
[2016-03-07] MEDS: Metoprolol XL (24 HR) Succ 50 MG TAB.ER.24H PO SCH (08:26)
[2016-03-07] MEDS: Diltiazem SR (12hr) 60 MG CAPSULE PO SCH ×2 (08:26→20:42)
[2016-03-07] MEDS: *HR* SitaGLIPtin 25 MG TABLET PO SCH (08:26)
[2016-03-07] MEDS: Insulin NPH 100 UNIT/ML (x5UNIT) SQ SCH ×2 (08:27→20:42)
[2016-03-07] MEDS: Insulin LISPRO 300 UNITS/3 ML VIAL SQ SCH ×4 (08:27→20:38)
[2016-03-07] MEDS: APIXABAN 5 MG TABLET PO SCH ×2 (09:46→20:42)
[2016-03-07] MEDS: Furosemide 40 MG TABLET PO SCH (17:57)
[2016-03-08] MEDS: Metoprolol XL (24 HR) Succ 50 MG TAB.ER.24H PO SCH (08:25)
[2016-03-08] MEDS: Furosemide 40 MG TABLET PO SCH (08:25)
[2016-03-08] MEDS: *HR* Digoxin 0.125 MG TABLET PO SCH (08:25)
[2016-03-08] MEDS: Diltiazem SR (12hr) 60 MG CAPSULE PO SCH ×2 (08:25→19:48)
[2016-03-08] MEDS: *HR* SitaGLIPtin 25 MG TABLET PO SCH (08:25)
[2016-03-08] MEDS: APIXABAN 5 MG TABLET PO SCH ×2 (08:26→19:48)
[2016-03-08] MEDS: Insulin LISPRO 300 UNITS/3 ML VIAL SQ SCH ×4 (08:26→19:50)
[2016-03-08] MEDS: Insulin NPH 100 UNIT/ML (x5UNIT) SQ SCH ×2 (08:28→19:48)
--- NOTE | 2016-03-08 11:04 | Internal Med Progress Note ---
Date of Encounter: 03/08/16 Time of Encounter: 11:03 - Assessment and plan (1) GI bleed Current Visit: Yes Status: Acute Assessment and plan: History of G.I. bleed in his count has been stable in the 8 g range, now 7.9. No active bleeding sites noted. Vitals are stable. Will recheck and follow. Qualifiers: GI bleed type/associated pathology: gastric ulcer Qualified Code(s): K25.4 - Chronic or unspecified gastric ulcer with hemorrhage (2) Acute on chronic systolic congestive heart failure Current Visit: No Status: Chronic Assessment and plan: His weight has been stable since admission No obvious congestive heart failure. (3) Atrial fibrillation Current Visit: Yes Status: Chronic Assessment and plan: Atrial fibrillation is rate controlled. He is on Eliquis for DVT Qualifiers: Atrial fibrillation type: paroxysmal Qualified Code(s): I48.0 - Paroxysmal atrial fibrillation (4) COPD (chronic obstructive pulmonary disease) Current Visit: Yes Status: Chronic Assessment and plan: His lungs are clear, no dyspnea, and has only occasional supplemental oxygen requirements Qualifiers: COPD type: unspecified COPD Qualified Code(s): J44.9 - Chronic obstructive pulmonary disease, unspecified (5) Diabetes mellitus, type 2 Current Visit: Yes Status: Chronic Assessment and plan: Sugars have been under good control typically in the 100s. Qualifiers: Diabetes mellitus complication status: without complication Diabetes mellitus manager long term care insulin use: without manager long term care use Qualified Code(s): E11.9 - Type 2 diabetes mellitus without complications (6) Hypertension Current Visit: Yes Status: Chronic Assessment and plan: His blood pressure has been high. Previously he had hypotension in [place]. His Lasix and amlodipine was held. if still elevated tomorrow will add lasix Qualifiers: Hypertension type: essential hypertension Qualified Code(s): I10 - Essential (primary) hypertension (7) Mixed hyperlipidemia Current Visit: Yes Status: Chronic (8) CHF (congestive heart failure) Current Visit: Yes Status: Chronic Assessment and plan: No angina or CHF noted. Qualifiers: Congestive heart failure type: combined Congestive heart failure chronicity : chronic Qualified Code(s): I50.42 - Chronic combined systolic (congestive) and diastolic (congestive) heart failure (9) Obesity due to excess calories Current Visit: Yes Status: Chronic Qualifiers: Obesity severity: morbid Qualified Code(s): E66.01 - Morbid (severe) obesity due to excess calories (10) Depression Current Visit: Yes Status: Chronic Assessment and plan: he is getting back to his usual self Qualifiers: Depression Type: reactive depression Qualified Code(s): F32.9 - Major depressive disorder, single episode, unspecified (11) Acute blood loss anemia Current Visit: Yes Status: Acute Assessment and plan: His hemoglobin dipped slightly to 7.9. (12) PIERO (obstructive sleep apnea) Current Visit: Yes Status: Chronic (13) PUD (peptic ulcer disease) Current Visit: Yes Status: Acute Assessment and plan: No evidence of acute bleeding.cont the ppi (14) CAD (coronary artery disease) Current Visit: Yes Status: Acute Assessment and plan: No angina or CHF. Qualifiers: Coronary Disease-Associated Artery/Lesion type: [place] artery [place] vs. transplanted heart: [place] heart Associated angina: without angina Qualified Code(s): I25.10 - Atherosclerotic heart disease of [place] coronary artery without angina pectoris (15) OA (osteoarthritis of spine) Current Visit: Yes Status: Chronic Assessment and plan: Patient has a spinal stimulator as he is not a candidate for an NSAID due to renal insufficiency in G.I. bleed. 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 Urine test was negative Qualifiers: Prostatic enlargement morphology: unspecified morphology Lower urinary tract symptom presence: symptoms present Qualified Code(s): N40.1 - Benign prostatic hyperplasia with lower urinary tract symptoms (17) Aortic stenosis Current Visit: Yes Status: Chronic Assessment and plan: History of nonrheumatic aortic valve stenosis. No CHF for angina. Qualifiers: Cardiac valve disease etiology: etiology unspecified Qualified Code(s): I35.0 - Nonrheumatic aortic (valve) stenosis (18) Ischemia of left lower extremity Current Visit: Yes Status: Acute Assessment and plan: Left lower extremity is warm and dry. He denies any pain. (19) AVM (arteriovenous malformation) of colon Current Visit: Yes Status: Acute Assessment and plan: No signs of active bleeding. he did not have a colonoscopy with this admission. (20) Macular degeneration Current Visit: Yes Status: Acute - Subjective Interval history: no complaints today. he denies pain, sob, n/v. he is looking forward to going home on monday. he is readyto be done with the hospital and he misses home. he walked 50 ft with therapy. his legs are still draining, maybe a little less than before. - Constitutional Vitals: Temp Pulse Resp BP Pulse Ox 97.9 F 76 16 173/64 93 L 03/08/16 07:00 03/08/16 07:00 03/08/16 07:00 03/08/16 07:00 03/08/16 07:00 General appearance: Present: cooperative, A&O X 3, morbidly obese, no acute distress, answers questions appropriately - Head Head exam: Present: atraumatic, normocephalic - Neck Neck exam general surgery: Present: supple, trachea midline - Respiratory Respiratory exam: Present: CTAB - Cardiovascular Cardiovascular exam: Present: irregular rhythm, systolic murmur - GI/Abdominal GI/Abdominal exam: Present: normal bowel sounds, soft, no peritoneal signs. Absent: guarding, rebound - Extremities Exam Extremities exam: Present: pedal edema (wounds still look the same. some granualation tissue. no surrounding erythema) Internal Medicine: Result - Labs CBC & Chem 7: 03/07/16 05:30 03/07/16 05:30 - ABG Interpretation ABG results: PT/INR, D-dimer PT 20.1 Seconds (9.4-12.1) H 03/03/16 05:25 - VTE Documentation of Mechanical Device: Graduated compression elastic hosiery Consult Discharge Plan - Plan Referrals: Shira Teague MD [Primary Care Provider] -
[2016-03-09] MEDS: *HR* Digoxin 0.125 MG TABLET PO SCH (08:01)
[2016-03-09] MEDS: Metoprolol XL (24 HR) Succ 50 MG TAB.ER.24H PO SCH (08:02)
[2016-03-09] MEDS: Diltiazem SR (12hr) 60 MG CAPSULE PO SCH ×2 (08:02→20:44)
[2016-03-09] MEDS: Furosemide 40 MG TABLET PO SCH (08:02)
[2016-03-09] MEDS: APIXABAN 5 MG TABLET PO SCH ×2 (08:02→20:45)
[2016-03-09] MEDS: *HR* SitaGLIPtin 25 MG TABLET PO SCH (08:02)
[2016-03-09] MEDS: Insulin NPH 100 UNIT/ML (x5UNIT) SQ SCH ×2 (08:04→20:46)
[2016-03-09] MEDS: Insulin LISPRO 300 UNITS/3 ML VIAL SQ SCH ×4 (08:07→20:48)
--- NOTE | 2016-03-09 13:11 | Internal Med Progress Note ---
Date of Encounter: 03/09/16 Time of Encounter: 13:54 - Assessment and plan (1) GI bleed Current Visit: Yes Status: Acute Assessment and plan: History of G.I. bleed in his count has been stable in the 8 g range, now 7.9. No active bleeding sites noted. Vitals are stable. Will recheck and follow. Qualifiers: GI bleed type/associated pathology: gastric ulcer Qualified Code(s): K25.4 - Chronic or unspecified gastric ulcer with hemorrhage (2) Acute on chronic systolic congestive heart failure Current Visit: No Status: Chronic Assessment and plan: His weight has been stable since admission No obvious congestive heart failure. (3) Atrial fibrillation Current Visit: Yes Status: Chronic Assessment and plan: Atrial fibrillation is rate controlled. He is on Eliquis for DVT Qualifiers: Atrial fibrillation type: paroxysmal Qualified Code(s): I48.0 - Paroxysmal atrial fibrillation (4) COPD (chronic obstructive pulmonary disease) Current Visit: Yes Status: Chronic Assessment and plan: His lungs are clear, no dyspnea, and has only occasional supplemental oxygen requirements Qualifiers: COPD type: unspecified COPD Qualified Code(s): J44.9 - Chronic obstructive pulmonary disease, unspecified (5) Diabetes mellitus, type 2 Current Visit: Yes Status: Chronic Assessment and plan: Sugars have been under good control typically in the 100s.to 160 Qualifiers: Diabetes mellitus complication status: without complication Diabetes mellitus long-term insulin use: without intermediate school teacher use Qualified Code(s): E11.9 - Type 2 diabetes mellitus without complications (6) Hypertension Current Visit: Yes Status: Chronic Assessment and plan: it has been elevated will add his amlodipine at 5mg again Qualifiers: Hypertension type: essential hypertension Qualified Code(s): I10 - Essential (primary) hypertension (7) Mixed hyperlipidemia Current Visit: Yes Status: Chronic (8) CHF (congestive heart failure) Current Visit: Yes Status: Chronic Assessment and plan: No angina or CHF noted. Qualifiers: Congestive heart failure type: combined Congestive heart failure chronicity : chronic Qualified Code(s): I50.42 - Chronic combined systolic (congestive) and diastolic (congestive) heart failure (9) Obesity due to excess calories Current Visit: Yes Status: Chronic Qualifiers: Obesity severity: morbid Qualified Code(s): E66.01 - Morbid (severe) obesity due to excess calories (10) Depression Current Visit: Yes Status: Chronic Qualifiers: Depression Type: reactive depression Qualified Code(s): F32.9 - Major depressive disorder, single episode, unspecified (11) Acute blood loss anemia Current Visit: Yes Status: Acute Assessment and plan: His hemoglobin dipped slightly to 7.9. will repeat tomorrow (12) PIERO (obstructive sleep apnea) Current Visit: Yes Status: Chronic (13) PUD (peptic ulcer disease) Current Visit: Yes Status: Acute Assessment and plan: No evidence of acute bleeding.cont the ppi (14) CAD (coronary artery disease) Current Visit: Yes Status: Acute Qualifiers: Coronary Disease-Associated Artery/Lesion type: [place] artery [place] vs. 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, lumbar region (16) BPH (benign prostatic hypertrophy) Current Visit: Yes Status: Chronic Qualifiers: Prostatic enlargement morphology: unspecified morphology Lower urinary tract symptom presence: symptoms present Qualified Code(s): N40.1 - Benign prostatic hyperplasia with lower urinary tract symptoms (17) Aortic stenosis Current Visit: Yes Status: Chronic Qualifiers: Cardiac valve disease etiology: etiology unspecified Qualified Code(s): I35.0 - Nonrheumatic aortic (valve) stenosis (18) Ischemia of left lower extremity Current Visit: Yes Status: Acute Assessment and plan: Left lower extremity is warm and dry. He denies any pain. (19) AVM (arteriovenous malformation) of colon Current Visit: Yes Status: Acute (20) Macular degeneration Current Visit: Yes Status: Acute - Subjective Interval history: no complaints today. he denies pain, sob, n/v. he is looking forward to going home on monday. . he walked 50 ft with therapy he has to be encouraged to do it. his legs are still draining,dressing is damp - Constitutional Vitals: Temp Pulse Resp BP Pulse Ox 98.3 F 78 16 150/67 94 L 03/09/16 11:53 03/09/16 11:53 03/09/16 11:53 03/09/16 11:53 03/09/16 11:53 General appearance: Present: cooperative, A&O X 3, morbidly obese, no acute distress, answers questions appropriately - Head Head exam: Present: atraumatic, normocephalic - Neck Neck exam general surgery: Present: supple, trachea midline. Absent: lymphadenopathy - Respiratory Respiratory exam: Present: CTAB - Cardiovascular Cardiovascular exam: Present: irregular rhythm, systolic murmur - GI/Abdominal GI/Abdominal exam: Present: normal bowel sounds, soft, no peritoneal signs. Absent: distended, guarding, tenderness - Extremities Exam Extremities exam: Present: pedal edema (skin ulcer with dressing intact damp) - Skin Skin exam: Present: dry, warm. Absent: rash Internal Medicine: Result - Labs CBC & Chem 7: 03/07/16 05:30 03/07/16 05:30 - ABG Interpretation ABG results: PT/INR, D-dimer PT 20.1 Seconds (9.4-12.1) H 03/03/16 05:25 - VTE Documentation of Mechanical Device: Graduated compression elastic hosiery Consult Discharge Plan - Plan Referrals: Shira Teague MD [Primary Care Provider] -
--- NOTE | 2016-03-09 13:59 | Physician Discharge Referral ---
Home Health/Hosp Referral Info Transfer to: Home Health Attending Provider: Zahida Provider in Charge Post Discharge: PCP - Diagnosis (1) GI bleed Priority: Primary Status: Acute (2) Acute on chronic systolic congestive heart failure Priority: Secondary Status: Chronic (3) Atrial fibrillation Priority: Secondary Status: Chronic (4) COPD (chronic obstructive pulmonary disease) Priority: Secondary Status: Chronic (5) Diabetes mellitus, type 2 Priority: Secondary Status: Chronic (6) Hypertension Priority: Secondary Status: Chronic (7) Mixed hyperlipidemia Priority: Secondary Status: Chronic (8) CHF (congestive heart failure) Priority: Secondary Status: Chronic (9) Obesity due to excess calories Priority: Secondary Status: Chronic (10) Depression Priority: Secondary Status: Chronic (11) Acute blood loss anemia Priority: Secondary Status: Acute (12) PIERO (obstructive sleep apnea) Priority: Secondary Status: Chronic (13) PUD (peptic ulcer disease) Priority: Secondary Status: Acute (14) CAD (coronary artery disease) Priority: Secondary Status: Acute (15) OA (osteoarthritis of spine) Priority: Secondary Status: Chronic (16) BPH (benign prostatic hypertrophy) Priority: Secondary Status: Chronic (17) Aortic stenosis Priority: Secondary Status: Chronic (18) Ischemia of left lower extremity Priority: Secondary Status: Acute (19) AVM (arteriovenous malformation) of colon Priority: Secondary Status: Acute (20) Macular degeneration Priority: Secondary Status: Acute - Respiratory Orders Oxygen / L per min (2) Smoking Cessation: Smoking cessation has been advised. For more information, call the [place] Tobacco Quit Line at 1-517-RQUU-NOW. - Dressing/Wound Care Site: left lower extremity - Diet/Nutrition Diet/Nutrition Orders: Cardiac - Activity Activity Orders: Walker - Services Needed Following services are medically necessary services: Nursing, Home Health Aide, Physical Therapy, Occupational Therapy - Transfer Medications Home Medications: Albuterol Sulfate [Albuterol Inhaler] 2 puff IH Q4H PRN 01/15/16 [History] Amlodipine Besylate 10 mg PO DAILY 01/15/16 [History] Atorvastatin Calcium [Lipitor] 20 mg PO DAILY 01/15/16 [History] Citalopram Hydrobromide [Citalopram HBr] 20 mg PO DAILY 01/15/16 [History] Ferrous Sulfate 325 mg PO TID 01/15/16 [History] Glimepiride [Amaryl] 2 mg PO QAM 01/15/16 [History] Losartan Potassium [Cozaar] 50 mg PO BID 01/15/16 [History] Metoprolol Succinate 100 mg PO DAILY 01/15/16 [History] Omeprazole [PriLOSEC] 20 mg PO BID 01/15/16 [History] Potassium Chloride [Klor-Con Sprinkle] 8 meq PO DAILY 01/15/16 [History] Sitagliptin Phosphate [Januvia] 50 mg PO DAILY 01/15/16 [History] Diltiazem [Cardizem] 60 mg PO Q6HR #120 tablet 02/06/16 [Rx] Furosemide [Lasix] 40 mg PO DAILY 60 Days 02/06/16 [Rx] Levofloxacin 500 mg PO DAILY #3 tablet 02/06/16 [Rx] Dulcolax 10 mg DAILY PRN 03/03/16 [History] Eliquis 5 mg PO BID 03/03/16 [History] Insulin LISPRO [Humalog Kwikpen U-100] 1 - 30 unit SQ ACHS 03/03/16 [History] Insulin NPH [HumuLIN NPH] 5 units SQ BID 03/03/16 [History] Magnesium Oxide [Magnesium] 400 mg PO 03/03/16 [History] Pantoprazole Sodium [Protonix] 40 mg PO DAILY 03/03/16 [History] Allergies/Adverse Reactions: Allergies aspirin [ASA] Allergy (Verified 02/02/16 04:08) Nose Bleed NSAIDS (Non-Steroidal Anti-Inflamma Adverse Reaction (Unknown, Verified 04:08) Nose Bleed bleeding nsaids Allergy (Uncoded 02/02/16 04:08) Nose Bleed Certification: Further, I certify that my clinical findings support that this patient is homebound (i.e. absences from home require considerable and taxing effort and are for medical reasons or gnosticism services or infrequently or short duration when for other reasons) because: recent hospital with gi deconditioning. needs walker now. Homebound Reason: Patient requires assistance of a person or device to safely leave home, Leaving home requires considerable and taxing effort due to condition Attestation: My signature below is to certify that this patient is under my care and that I, or nurse practitioner, or a physician's speech language pathologist assistant working with me, has a face-to -face encounter with this patient.
--- NOTE | 2016-03-09 16:02 | Psychological Evaluation ---
Date of Encounter: 03/09/16 Time of Encounter: 11:00 History of Present Illness History of present illness: Mr. France is a 85 year old male admitted to [facility] to address his deconditioned status following acute on chronic systolic congestive heart failure. He was seen on this date to assess his current cognitive and emotional functioning. Past Medical History Medical history: Signigicant for congestive heart failure, COPD, atrial fibrillation, AVM of colon, peripheral artery disease, coronary artery disease, HTN, diabetes, sleep apnea, GERD, osteoarthritis of spine, aortic stenosis, hyperlipidemia and macular degeneration. - Psychiatric History Additional Psychiatric History: There is no history of psychiatric hospitalization or suicidal ideation. Medical records indicate a history of depression but Mr. France denied that he has ever been treated for depression or anxiety issues. Family psychiatric hx: there is no known history. Home Medications and Allergies Albuterol Sulfate [Albuterol Inhaler] 2 puff IH Q4H PRN 01/15/16 [History] Amlodipine Besylate 10 mg PO DAILY 01/15/16 [History] Atorvastatin Calcium [Lipitor] 20 mg PO DAILY 01/15/16 [History] Citalopram Hydrobromide [Citalopram HBr] 20 mg PO DAILY 01/15/16 [History] Ferrous Sulfate 325 mg PO TID 01/15/16 [History] Glimepiride [Amaryl] 2 mg PO QAM 01/15/16 [History] Losartan Potassium [Cozaar] 50 mg PO BID 01/15/16 [History] Metoprolol Succinate 100 mg PO DAILY 01/15/16 [History] Omeprazole [PriLOSEC] 20 mg PO BID 01/15/16 [History] Potassium Chloride [Klor-Con Sprinkle] 8 meq PO DAILY 01/15/16 [History] Sitagliptin Phosphate [Januvia] 50 mg PO DAILY 01/15/16 [History] Diltiazem [Cardizem] 60 mg PO Q6HR #120 tablet 02/06/16 [Rx] Furosemide [Lasix] 40 mg PO DAILY 60 Days 02/06/16 [Rx] Levofloxacin 500 mg PO DAILY #3 tablet 02/06/16 [Rx] Dulcolax 10 mg DAILY PRN 03/03/16 [History] Eliquis 5 mg PO BID 03/03/16 [History] Insulin LISPRO [Humalog Kwikpen U-100] 1 - 30 unit SQ ACHS 03/03/16 [History] Insulin NPH [HumuLIN NPH] 5 units SQ BID 03/03/16 [History] Magnesium Oxide [Magnesium] 400 mg PO 03/03/16 [History] Pantoprazole Sodium [Protonix] 40 mg PO DAILY 03/03/16 [History] Allergies aspirin [ASA] Allergy (Verified 02/02/16 04:08) Nose Bleed NSAIDS (Non-Steroidal Anti-Inflamma Adverse Reaction (Unknown, Verified 04:08) Nose Bleed bleeding nsaids Allergy (Uncoded 02/02/16 04:08) Nose Bleed Social History - Social History Social History: Mr. France reported that he has been to his third for approximately 17 years. He has two adult-aged children (son age 53 who is a co pilot for [employer];and daughter age 42 who is an educational technologist in [place]) . He also reported that he retired from [employer] where he worked for 28 years. 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 His is a high school academic coach and he is home by himself during the day. Social support system consists of his sister (in [place]) and his . He reported that he attends [employer] but is not social . - Tobacco Use Smoking Status: Former smoker (Mr. France reported that he consumes alcohol occasionally and will drink between one to a 12-pack of beer. There is no history of illicit substance use or abuse. There is no history of alcohol abuse or treatment.) - Alcohol Use Alcohol Use: occasionally (Mr. France reported that he consumes between 1 to a 12-pack of beer occassionally. There is no history of alcohol abuse or treatment. ) - Drug Use Drug Use: none Cognitive/Emotional Assessment - Cognitive Ability Additional Findings: Mr. France was alert, attentive and oriented. Speech was clear, fluent and effective. He answered questions accurately during this evaluation but other therapists reported that he has been noted to fabricate answers and make up stories. Thought processes were logical, goal-directed and coherent. There were no signs of delusional ideation or perceptual disturbances. Able to do confrontatlonal naming and rote arithmetic with ease. Auditory comprehension appeared adequate. On a task of delayed verbal, he scored within the mildly impaired range. He exhibited some problems with encoding and retrieval of new information. His performance was assisted with recognition (multiple choice cueing). - Emotional Status Additional Findings: Mr. France cooperated with the interview after initially trying to tell this provider that he was not Mr. France and to look for him in another room. He described his mood as "normal". He displayed flat/restricted affect and was noted to not smile or display a sense of humor. He denied any concerns or worry about returning home but commented that he does not understand why the staff will not let him do things in his room unsupervised if he is at [facility] to learn to become independent again. Assessment & Plan - Diagnosis (1) Other specified mental disorders due to known physiological condition - Treatment Plan Treatment Plan/Recommendations: Mr. France is scheduled to be discharged 03/11/16. He appears to be functioning adequately from a cognitive/emotional perspective to return to community living. There are no recommendations for additional psychological services/interventions post-discharge. Procedures - Session Time Session Start Time: 11:00 Session Stop Time: 11:30
[2016-03-10 05:39] LABS: Basophils # 0.1 K/mcL (0.0-0.2); Basophils % 0.8 %; Eosinophils # 0.6 K/mcL (0.0-0.6); Eosinophils % 7.1 %; Hematocrit 27.8 % (37.5-50.1); Hemoglobin 8.4 g/dL (12.9-16.9); Lymphocytes # 0.8 K/mcL (0.6-4.6); Mean Corpuscular HGB Conc 30.2 g/dL (31.6-35.5); Mean Corpuscular Hemoglobin 25.9 pg (28.0-33.3); Mean Corpuscular Volume 85.8 fL (83.0-100.0); Mean Platelet Volume 9.1 fL (9.4-12.4); Monocytes # 0.7 K/mcL (0.0-1.3); Monocytes % 8.9 %; Neutrophils # 5.7 K/mcL (1.6-8.9); Platelet Count 275 K/mcL (140-400); Red Blood Count 3.24 M/mcL (4.19-5.50); Red Cell Distribution Width 15.7 % (11.5-14.5); Segmented Neutrophils % 72.2 %
[2016-03-10 05:44] LABS: BUN/Creatinine Ratio 10 (6-26); Blood Urea Nitrogen 13 mg/dL (8-26); Calcium 8.6 mg/dL (8.6-10.8); Carbon Dioxide 24 mEq/L (19-29); Chloride 109 mEq/L (98-109); Glucose 127 mg/dL (70-99); Osmolality,Calculated 300 (280-300); Potassium 3.4 mEq/L (3.5-4.5); Sodium 144 mEq/L (136-145); eGFR For African Americans > 60 (> 60); eGFR For Non-African Americans 56 (> 60)
[2016-03-10] MEDS: *HR* Digoxin 0.125 MG TABLET PO SCH (08:35)
[2016-03-10] MEDS: *HR* SitaGLIPtin 25 MG TABLET PO SCH (08:35)
[2016-03-10] MEDS: APIXABAN 5 MG TABLET PO SCH ×2 (08:36→21:15)
[2016-03-10] MEDS: Metoprolol XL (24 HR) Succ 50 MG TAB.ER.24H PO SCH (08:36)
[2016-03-10] MEDS: Furosemide 40 MG TABLET PO SCH (08:36)
[2016-03-10] MEDS: Diltiazem SR (12hr) 60 MG CAPSULE PO SCH ×2 (08:36→21:15)
[2016-03-10] MEDS: Insulin NPH 100 UNIT/ML (x5UNIT) SQ SCH ×2 (08:37→21:12)
--- NOTE | 2016-03-10 12:30 | Internal Med Progress Note ---
Date of Encounter: 03/11/16 Time of Encounter: 13:00 - Assessment and plan (1) GI bleed Status: Acute Assessment and plan: History of G.I. bleed in his count has been stable. No active bleeding sites noted. Vitals are stable. . Qualifiers: Qualified Code(s): K25.4 - Chronic or unspecified gastric ulcer with hemorrhage (2) Acute on chronic systolic congestive heart failure Status: Chronic Assessment and plan: His weight has been stable since admission No obvious congestive heart failure. (3) Atrial fibrillation Status: Chronic Assessment and plan: Atrial fibrillation is rate controlled. He is on Eliquis for DVT Qualifiers: Qualified Code(s): I48.0 - Paroxysmal atrial fibrillation (4) COPD (chronic obstructive pulmonary disease) Status: Chronic Assessment and plan: His lungs are clear, no dyspnea, and has only occasional supplemental oxygen requirements Qualifiers: Qualified Code(s): J44.9 - Chronic obstructive pulmonary disease, unspecified (5) Diabetes mellitus, type 2 Status: Chronic Assessment and plan: Sugars have been under good control typically in the 100s.to 160. increased the nph to 6 units yesterday Qualifiers: Qualified Code(s): E11.9 - Type 2 diabetes mellitus without complications (6) Hypertension Status: Chronic Assessment and plan: it has been elevated will add his amlodipine at 5mg again Qualifiers: Qualified Code(s): I10 - Essential (primary) hypertension (7) Mixed hyperlipidemia Status: Chronic (8) CHF (congestive heart failure) Status: Chronic Assessment and plan: No angina or CHF noted. Qualifiers: Qualified Code(s): I50.42 - Chronic combined systolic (congestive) and diastolic (congestive) heart failure (9) Obesity due to excess calories Status: Chronic Qualifiers: Qualified Code(s): E66.01 - Morbid (severe) obesity due to excess calories (10) Depression Status: Chronic Assessment and plan: he is getting back to his usual self Qualifiers: Qualified Code(s): F32.9 - Major depressive disorder, single episode, unspecified (11) Acute blood loss anemia Status: Acute Assessment and plan: stable (12) PIERO (obstructive sleep apnea) Status: Chronic (13) PUD (peptic ulcer disease) Status: Acute Assessment and plan: No evidence of acute bleeding.cont the ppi (14) CAD (coronary artery disease) Status: Acute Assessment and plan: No angina or CHF. 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 No CHF for angina. Qualifiers: Qualified Code(s): I35.0 - Nonrheumatic aortic (valve) stenosis (18) Ischemia of left lower extremity Status: Acute Assessment and plan: Left lower extremity is warm and dry. He denies any pain. cont the leiquis (19) AVM (arteriovenous malformation) of colon Status: Acute Assessment and plan: No signs of active bleeding. he did not have a colonoscopy with this admission. (20) Macular degeneration Status: Acute (21) Hypokalemia Status: Acute Assessment and plan: likely due to the lasix will add potassium (22) Wound of left lower extremity Status: Acute Assessment and plan: will continue with wound are and dressing changes Qualifiers: Qualified Code(s): S81.802A - Unspecified open wound, left lower leg, initial encounter - Subjective Interval history: no complaints today. he denies pain, sob, n/v, constipation. he is looking forward to going home on tomorrow. states he is ready. his legs are still draining,but less - Constitutional Vitals: Temp Pulse Resp BP Pulse Ox 98.4 F 68 17 156/55 97 03/10/16 10:54 03/10/16 10:54 03/10/16 10:54 03/10/16 10:54 03/10/16 10:54 General appearance: Present: cooperative, A&O X 3, morbidly obese, no acute distress, answers questions appropriately - Head Head exam: Present: atraumatic, normocephalic - Neck Neck exam general surgery: Present: normal inspection, supple, trachea midline - Respiratory Respiratory exam: Present: CTAB - Cardiovascular Cardiovascular exam: Present: irregular rhythm, systolic murmur - GI/Abdominal GI/Abdominal exam: Present: normal bowel sounds, soft, no peritoneal signs. Absent: guarding, tenderness - Extremities Exam Extremities exam: Present: pedal edema (but decreased), warm (still with the left lower ext lesions. no erythema. appear the same) Internal Medicine: Result - Labs CBC & Chem 7: 03/10/16 05:15 03/10/16 05:15 Labs: Short CBC 03/10/16 Range/Units 05:15 WBC 7.9 (4.3-11.1) K/mcL Hgb 8.4 L (12.9-16.9) g/dL Hct 27.8 L (37.5-50.1) % Plt Count 275 (140-400) K/mcL Neutrophils # 5.7 (1.6-8.9) K/mcL BMP 03/10/16 05:15 Sodium 144 Potassium 3.4 L Chloride 109 Carbon Dioxide 24 BUN 13 Creatinine 1.24 Glucose 127 H Calcium 8.6 - ABG Interpretation ABG results: PT/INR, D-dimer PT 20.1 Seconds (9.4-12.1) H 03/03/16 05:25 - VTE Documentation of Mechanical Device: Graduated compression elastic hosiery Consult Discharge Plan - Plan Instructions: Insulin NPH/Regular (Injection), Deep Venous Thrombosis (DC), Diabetes Mellitus Type 2 in Adults (DC), Chronic Hypertension (DC), Anemia (GEN) Additional Instructions: follow up in the wound care clinic for the wounds on your legs Referrals: [facility] [Outside] - 03/18/16 12:30 pm (Wound Care Clinic [phone]) Shira Teague MD [Primary Care Provider] - 03/17/16 10:30 am Prescriptions: Apixaban [Eliquis] 5 mg PO BID #60 tablet Digoxin [Lanoxin] 0.125 mg PO DAILY #30 tablet Diltiazem SR (12hr) [Cardizem SR] 120 mg PO BID #60 cap.er.12h Insulin NPH, HUMAN [HumuLIN N] 6 unit SQ BID #30 [id number]
[2016-03-10] MEDS: Insulin LISPRO 300 UNITS/3 ML VIAL SQ SCH ×2 (16:41→21:08)
--- NOTE | 2016-03-10 19:09 | Discharge Summary ---
Date of Encounter: 03/11/16 Time of Encounter: 08:25 - Discharge Diagnosis (1) GI bleed Priority: Primary Status: Acute Comments: He came from [facility] where he had been hospitalized for an upper GI bleed. He had an EGD with a clip gastric artery bleed. He was transfused 4 units upper [facility] or struggling to get blood that would match his because he has an antibody. He is also on iron 3 times a day his hemoglobin has remained stable throughout this admission. Continue to followed up. Continue His PPI he did not have any lower endoscopy he has a history of AVMs of the colon that did not appear to be an issue at this point in time. Qualifiers: Qualified Code(s): K25.4 - Chronic or unspecified gastric ulcer with hemorrhage (2) Acute on chronic systolic congestive heart failure Priority: Secondary Status: Chronic Comments: his lasix And arb had to be held while he was at [facility] due to hypotension those are restarted. His edema has gotten better. He is not short of breath. His CHF has been stable (3) Atrial fibrillation Priority: Secondary Status: Chronic Comments: Beta jason diltiazem and digoxin for his A. fib he had A. fib with RVR but [facility] he has been rate controlled here. Coagulation he is on eliquis Qualifiers: Qualified Code(s): I48.0 - Paroxysmal atrial fibrillation (4) COPD (chronic obstructive pulmonary disease) Priority: Secondary Status: Chronic Comments: That has been stable at baseline he has not had any problems without this admission Qualifiers: Qualified Code(s): J44.9 - Chronic obstructive pulmonary disease, unspecified (5) Diabetes mellitus, type 2 Priority: Secondary Status: Chronic Comments: Taken off several his diabetic medications at [facility] due to his renal insufficiency he was started on NPH and sliding scale. I like I highly doubt he will do the sliding scale with meals so we will start with NPH twice a day initially and see what his hemoglobin A1c does. Qualifiers: Qualified Code(s): E11.9 - Type 2 diabetes mellitus without complications (6) Hypertension Priority: Secondary Status: Chronic Comments: He had hypotension up at [facility] and several of his blood pressure medications were held. When he got here his blood pressure gradually increased and he became hypertensive and we had to start him back on his home medications. Qualifiers: Qualified Code(s): I10 - Essential (primary) hypertension (7) Mixed hyperlipidemia Priority: Secondary Status: Chronic Comments: stable (8) CHF (congestive heart failure) Priority: Secondary Status: Chronic Qualifiers: Qualified Code(s): I50.42 - Chronic combined systolic (congestive) and diastolic (congestive) heart failure (9) Obesity due to excess calories Priority: Secondary Status: Chronic Qualifiers: Qualified Code(s): E66.01 - Morbid (severe) obesity due to excess calories (10) Depression Priority: Secondary Status: Chronic Comments: He was home medication he did see psychiatry his moods are improving since he is getting to go home. Qualifiers: Qualified Code(s): F32.9 - Major depressive disorder, single episode, unspecified (11) Acute blood loss anemia Priority: Secondary Status: Acute Comments: That has been stable continue to follow continue his iron (12) PIERO (obstructive sleep apnea) Priority: Secondary Status: Chronic (13) PUD (peptic ulcer disease) Priority: Secondary Status: Acute (14) CAD (coronary artery disease) Priority: Secondary Status: Acute Comments: Stable yet did not have any coronary symptoms. 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 That got better and his urine culture was negative Qualifiers: Qualified Code(s): N40.1 - Benign prostatic hyperplasia with lower urinary tract symptoms (17) Aortic stenosis Priority: Secondary Status: Chronic Qualifiers: Qualified Code(s): I35.0 - Nonrheumatic aortic (valve) stenosis (18) Ischemia of left lower extremity Priority: Secondary Status: Acute Comments: He has developed an arterial occlusion up at [facility]. He was not initially started on heparin drip upper [facility] and transferred over to by mouth [facility]. Had improvement of the perfusion of that leg. But he did develop some leg ulcers. He had a consult upper [facility] there is nothing more they can do besides anticoagulation. Not a candidate for intervention (19) AVM (arteriovenous malformation) of colon Priority: Secondary Status: Acute (20) Macular degeneration Priority: Secondary Status: Acute (21) Hypokalemia Priority: Secondary Status: Acute Comments: Restarted back on his by mouth potassium (22) Wound of left lower extremity Priority: Secondary Status: Acute Comments: See wound care as an outpatient and get home health. It has improved in terms of drainage the size of the same it does not appear infected Qualifiers: Qualified Code(s): S81.802A - Unspecified open wound, left lower leg, initial encounter - Discharge Medications Prescriptions: Apixaban [Eliquis] 5 mg PO BID #60 tablet Digoxin [Lanoxin] 0.125 mg PO DAILY #30 tablet Diltiazem SR (12hr) [Cardizem SR] 120 mg PO BID #60 cap.er.12h Insulin NPH, HUMAN [HumuLIN N] 6 unit SQ BID #30 [id number] Home Medications: Albuterol Sulfate [Albuterol Inhaler] 2 puff IH Q4H PRN 01/15/16 [History] Amlodipine Besylate 10 mg PO DAILY 01/15/16 [History] Atorvastatin Calcium [Lipitor] 20 mg PO DAILY 01/15/16 [History] Citalopram Hydrobromide [Citalopram HBr] 20 mg PO DAILY 01/15/16 [History] Ferrous Sulfate 325 mg PO TID 01/15/16 [History] Losartan Potassium [Cozaar] 50 mg PO BID 01/15/16 [History] Metoprolol Succinate 100 mg PO DAILY 01/15/16 [History] Omeprazole [PriLOSEC] 20 mg PO BID 01/15/16 [History] Potassium Chloride [Klor-Con Sprinkle] 8 meq PO DAILY 01/15/16 [History] Sitagliptin Phosphate [Januvia] 50 mg PO DAILY 01/15/16 [History] Furosemide [Lasix] 40 mg PO DAILY 60 Days 02/06/16 [Rx] Dulcolax 10 mg DAILY PRN 03/03/16 [History] Eliquis 5 mg PO BID 03/03/16 [History] Pantoprazole Sodium [Protonix] 40 mg PO DAILY 03/03/16 [History] Apixaban [Eliquis] 5 mg PO BID #60 tablet 03/11/16 [Rx] Bisacodyl [Dulcolax] 10 mg RC DAILY PRN #0 supp.rect 03/11/16 [Rx] Citalopram [CeleXA] 20 mg PO DAILY tablet 03/11/16 [Rx] Digoxin [Lanoxin] 0.125 mg PO DAILY #30 tablet 03/11/16 [Rx] Diltiazem SR (12hr) [Cardizem SR] 120 mg PO BID #60 cap.er.12h 03/11/16 [Rx] Ferrous Sulfate 325 mg PO TIDWM tablet 03/11/16 [Rx] Furosemide [Lasix] 40 mg PO DAILY tablet 03/11/16 [Rx] Insulin NPH, HUMAN [HumuLIN N] 6 unit SQ BID #30 [id number] 03/11/16 [Rx] Metoprolol XL (24 HR) Succ [Toprol Xl] 100 mg PO DAILY tab.er.24h 03/11/16 [Rx] Omeprazole [PriLOSEC] 40 mg PO DAILY@0630 capsule.dr 03/11/16 [Rx] SitaGLIPtin [Januvia] 50 mg PO DAILY tablet 03/11/16 [Rx] Allergies/Adverse Reactions: Allergies aspirin [ASA] Allergy (Verified 02/02/16 04:08) Nose Bleed NSAIDS (Non-Steroidal Anti-Inflamma Adverse Reaction (Unknown, Verified 04:08) Nose Bleed bleeding nsaids Allergy (Uncoded 02/02/16 04:08) Nose Bleed Date of admission: 03/02/16 20:02 Primary care physician: Shira Teague, Consults: 03/02/16 21:01 Consult to Nutrition [CONS] Routine Comment: Consulting Provider: NUTRITION Reason for Dietary Consult: Supplemental Nutrition Other Other:: poor nutrition 03/02/16 21:02 Consult to Occupational Therapy [CONS] Routine Comment: eval and treat Consult to Physical Therapy [CONS] Routine Comment: eval and treat Consult to Recreational Therapy [CONS] Routine Comment: Consult to Liquid Center Assembler [CONS] Routine Reason for SW Consult: discharge planning 03/02/16 21:10 Consult to Speech Therapy [CONS] Routine Comment: Evaluate, develop and implement POC Reason for Consult: soft chopped diet, eval and treat Call Completed: No 03/02/16 21:12 Consult to Velocity Shooter [CONS] Routine Comment: Consult to Wound Care [CONS] Routine Reason for Consult: LLE Call Completed: No 03/07/16 13:38 Consult to Psychology [CONS] Routine Consulting Provider: Rosa Granda Reason for Consult: eval and tx Call Completed: Yes - Patient Status Disposition: Home Health Service Condition: Good Functional capacity at discharge: uses cane/walker Overall status at discharge: patient is progressing back to baseline - Discharge Instructions Instructions: Insulin NPH/Regular (Injection), Deep Venous Thrombosis (DC), Diabetes Mellitus Type 2 in Adults (DC), Chronic Hypertension (DC), Anemia (GEN) Follow Up With: [facility] [Outside] - 03/18/16 12:30 pm (Wound Care Clinic [phone]) Shira Teague MD [Primary Care Provider] - 03/17/16 10:30 am Additional Instructions: follow up in the wound care clinic for the wounds on your legs - Diet and Activity Activity: as per physical therapy, increase activity as tolerated Diet: diabetic diet, low fat, low cholesterol Interval History: Is an 87-year-old male who presented from [facility] after he had an upper GI bleed with a clipped gastric ulcer. He is on PPIs as were continued he was transfused 4 units upper [facility]. His hemoglobin has remained stable here. It is very difficult to get blood for him due to his antibodies. He developed an arterial occlusion of the left lower extremity upper [facility] where he was started on a heparin drip changed over to by mouth eliquis. hopefully He will continue to tolerate this. Right lower extremity DVT upper [facility] and IVC filter was placed he developed a left lower extremity DVT and he was started on a heparin drip and changed to by mouth anticoagulation. His CHF has remained stable he did have hypotension upper [facility] but that is back to hypertension and the medications that were held while he was at [facility] of been restarted. Several his by mouth diabetic medications had to be held due to his renal insufficiency it was changed over to insulin he did have a sliding scale while he was here but that is probably can be difficult for him to continue as an outpatient so we will continue to see NPH and see what his hemoglobin A1c does. Has a leg ulcer of the left lower extremity where he had his arterial occlusion and swelling he will continue to follow with wound care as an outpatient home health is going to come because it is difficult for him to get out of the house. He needs his to get out of the house. Hospital course: Mr. France is a 85 year old male - Time Spent with Patient Total time spent providing and/or coordinating discharge services: - Constitutional Vitals: Temp Pulse Resp BP Pulse Ox 98.6 F 73 16 151/64 94 L 03/10/16 15:00 03/10/16 15:00 03/10/16 15:00 03/10/16 15:00 03/10/16 15:00 General appearance: Present: cooperative, A&O X 3, morbidly obese, no acute distress, answers questions appropriately - Head Head exam: Present: atraumatic, normocephalic - Neck Neck exam general surgery: Present: supple, trachea midline. Absent: tenderness , thyromegaly - Respiratory Respiratory exam: Present: CTAB - Cardiovascular Cardiovascular exam: Present: irregular rhythm, systolic murmur - GI/Abdominal GI/Abdominal exam: Present: normal bowel sounds, soft, no peritoneal signs. Absent: guarding, tenderness - Extremities Exam Extremities exam: Present: normal capillary refill, pedal edema (but improved still with the left lower ext ulcer), warm - Skin Skin exam: Present: dry. Absent: rash - VTE Documentation of Mechanical Device: Graduated compression elastic hosiery
[2016-03-11] MEDS: Furosemide 40 MG TABLET PO SCH (08:21)
[2016-03-11] MEDS: Metoprolol XL (24 HR) Succ 50 MG TAB.ER.24H PO SCH (08:21)
[2016-03-11] MEDS: *HR* SitaGLIPtin 25 MG TABLET PO SCH (08:21)
[2016-03-11] MEDS: *HR* Digoxin 0.125 MG TABLET PO SCH (08:21)
[2016-03-11] MEDS: APIXABAN 5 MG TABLET PO SCH (08:21)
[2016-03-11] MEDS: Diltiazem SR (12hr) 60 MG CAPSULE PO SCH (08:22)
[2016-03-11] MEDS: Insulin LISPRO 300 UNITS/3 ML VIAL SQ SCH ×3 (08:22→12:32)
[2016-03-11] MEDS: Insulin NPH 100 UNIT/ML (x5UNIT) SQ SCH (08:23)
[2016-03-11 11:48] VITALS: BP 157/59
== END 2016-03-11 15:30 | disposition home health service (06) | DRG 945 ==
LOC: INPGRE 20:02
PROVIDERS: ADMIT Family Medicine; ATTEND Family Medicine

== ENCOUNTER 2018-07-11 05:23 | Observation (INO) ==
[2018-07-11 05:49] LABS: Basophils % 0.4 %; Eosinophils # 0.1 K/mcL (0.0-0.6); Eosinophils % 1.9 %; Hematocrit 37.6 % (37.5-50.1); Hemoglobin 11.5 g/dL (12.9-16.9); Immature Granulocytes % 0.4 % (0-4); Lymphocytes # 0.3 K/mcL (0.6-4.6); Lymphocytes % 4.9 %; Mean Corpuscular HGB Conc 30.6 g/dL (31.6-35.5); Mean Corpuscular Hemoglobin 26.7 pg (28.0-33.3); Mean Corpuscular Volume 87.4 fL (83.0-100.0); Mean Platelet Volume 9.9 fL (9.4-12.4); Monocytes # 0.5 K/mcL (0.0-1.3); Monocytes % 7.5 %; Neutrophils # 5.8 K/mcL (1.6-8.9); Platelet Count 162 K/mcL (140-400); Red Cell Distribution Width 17.3 % (11.5-14.5); Segmented Neutrophils % 84.9 %; White Blood Count 6.9 K/mcL (4.3-11.1)
[2018-07-11 05:53] LABS: INR 1.3; Prothrombin Time 14.1 Seconds (9.4-12.1)
[2018-07-11 05:56] LABS: Activated Partial Thrombo Time 31.8 Seconds (26.0-36.0)
[2018-07-11] MEDS ORDERED: Levalbuterol Neb 1.25 MG/3 ML IH ONE (05:56)
[2018-07-11] MEDS ORDERED: Furosemide 40 MG/4 ML VIAL IVP ONE (06:10)
[2018-07-11 06:14] LABS: Albumin 3.8 g/dL (3.5-5.7); Albumin/Globulin Ratio 1.7 (1.1-2.2); Bilirubin,Total 0.5 mg/dL (0.3-1.0); Calcium 8.9 mg/dL (8.6-10.3); Globulin 2.3 g/dL (2.4-3.5); Potassium 3.8 mEq/L (3.5-5.1); Total Protein 6.1 g/dL (6.4-8.9); Troponin I 0.05 ng/mL (< 0.04)
--- NOTE | 2018-07-11 06:25 | Emergency Department Note ---
Disposition Clinical Impression: Acute on chronic systolic congestive heart failure Chronic kidney disease Qualifiers: Chronic kidney disease stage: unspecified stage Qualified Code(s): N18.9 - Chronic kidney disease, unspecified Aortic stenosis Qualifiers: Cardiac valve disease etiology: etiology unspecified Qualified Code(s): I35.0 - Nonrheumatic aortic (valve) stenosis Disposition: Admitted As Inpatient Condition: Fair Referrals: Shira Chavarria MD [Primary Care Provider] - Forms: ED Satisfaction Letter Time of Disposition: 06:45 SOB HPI - General Chief Complaint: ED Shortness of Breath/Dyspnea Stated Complaint: shortness of breath Time Seen by Provider: 07/11/18 05:35 Source: patient, EMS Limitations: no limitations Nursing Notes Reviewed: Yes Vital Signs Reviewed: Yes - History of Present Illness 87-year-old male percents for evaluation of shortness of breath. The patient states that last night trying to go to bed he felt short of breath and cannot get his oxygen. This morning he woke up and continued to feel short of breath and is I gave him a dose of his normal Lasix due to leg swelling. Patient states no chest pain. He has had no cough. Has no fever or chills. He does have a prior history of COPD and CHF - Related Data Home Medications Medication Instructions Recorded Confirmed Albuterol Sulfate [Albuterol 2 puff IH Q4H PRN 01/15/16 12/24/17 Inhaler] Atorvastatin Calcium [Lipitor] 20 mg PO DAILY 01/15/16 07/11/18 Potassium Chloride [Klor-Con 8 meq PO TID 01/15/16 07/11/18 Sprinkle] Sitagliptin Phosphate [Januvia] 50 mg PO DAILY 01/15/16 07/11/18 Allopurinol [Zyloprim 100 MG] 100 mg PO BID 01/27/17 07/11/18 Omeprazole [PriLOSEC] 40 mg PO DAILY 01/27/17 07/11/18 Isosorbide DInitrate [Isosorbide 20 mg PO TID 05/31/17 07/11/18 Dinitrate] hydrALAZINE [HydrALAZINE] 50 mg PO TID 05/31/17 07/11/18 Lisinopril [Zestril] 5 mg PO DAILY 07/20/17 07/11/18 Ferrous Sulfate [Iron] 325 mg PO TID 07/21/17 07/11/18 Furosemide [Lasix] 80 mg PO BID 07/21/17 07/11/18 dilTIAZem HCl [Diltiazem 24Hr ER] 240 mg PO DAILY 07/21/17 07/11/18 Insulin ASPART [NovoLOG] 6 unit SQ BID 12/24/17 07/11/18 Previous Rx's Medication Instructions Recorded Citalopram [CeleXA] 20 mg PO DAILY tablet 03/11/16 Metoprolol XL (24 HR) Succ [Toprol 100 mg PO DAILY tab.er.24h 03/11/16 Xl] Allergies Allergy/AdvReac Type Severity Reaction Status Date / Time NSAIDS (Non-Steroidal AdvReac Unknown Nose Bleed Verified 07/11/18 05:49 Anti-Inflamma aspirin [ASA] AdvReac Nose Bleed Verified 07/11/18 05:49 nsaids AdvReac Nose Bleed Uncoded 07/11/18 05:49 Review of Systems: Constitutional: [Negative for fever and chills.] HENT: [Negative for congestion.] Eyes: [Negative for discharge.] Respiratory: See history of present illness Cardiovascular: [Negative for chest pain.] Gastrointestinal: [Negative for nausea, vomiting, abdominal pain and diarrhea.] Endocrine: [Negative for excessive thirst,urination] Genitourinary: [Negative for dysuria and frequency.] Musculoskeletal: [Negative for myalgias and arthralgias.] Skin: [Negative for rash.] Neurological: [Negative for dizziness, localized weakness and headaches.] Psychiatric/Behavioral: [Negative for nervous/anxious.] All other systems reviewed and are negative. Past Medical History - Past Medical History Attestation: Yes The following information was validated with the patient. Source: patient Medical history: Reports: arthritis, atrial fibrillation, CHF, COPD, coronary artery disease, DVT, diabetes, GERD, GI bleed, glaucoma, hyperlipidemia, hypertension, peripheral artery disease, renal disease, valvular heart disease, other Surgical history: Reports: colectomy, IVC Filter, tonsillectomy, other Psychiatric history: Reports: depression - Social History Smoking Status: Former smoker Smokeless Tobacco Status: No Alcohol use: Reports: none Drug use: Reports: none Physical Exam Constitutional: Patient is [alert], elderly and with oxygen and is comfortable and cooperative. HENT: Head: Normocephalic and atraumatic. Right Ear: External ear normal. Left Ear: External ear normal. Nose: Nose normal. Mouth/Throat: Oropharynx is clear and mucous membranes show [good hydration.] Eyes: Conjunctivae and EOM are normal. Pupils are equal, round, and reactive to light. Right eye exhibits [no] discharge. Left eye exhibits [no] discharge. Neck: Trachea is midline, normal range of motion and [phonation normal]. Neck supple. Cardiovascular: [Regular rhythm], S1 normal, S2 normal, normal heart sounds and intact distal pulses. Exam reveals no gallop and no friction rub. No murmur heard. [Capillary refill is brisk.] [Peripheral pulses are 2+] Pulmonary/Chest: Effort increased No stridor. Mild tachypnea. Mild respiratory distress. There are [no] decreased breath sounds. There are diffuse wheezes and rales heard in all lung herron Abdominal: Soft. [Bowel sounds are normal]. There exhibits [no] distension and [no] mass. There is no hepatosplenomegaly. There is [no tenderness], [no] CVA tenderness. There is [no rigidity, no rebound, no guarding]. Musculoskeletal: Normal range of motion of uninvolved extremities. There exhibits 1-2+ peripheral edema laterally Neurological: Patient is alert. Patient displays no atrophy and no tremor. Moves all 4 extremities equally without gross deficit. No cranial nerve deficit and exhibits normal muscle tone. Coordination normal grossly. Skin: Skin is warm and dry. No erythema. No rash noted. Psychiatric: Patient has a [normal mood and affect.] Course Course Narrative: [ ] Discussed diagnosis and further treatment plans with patient and . Questions addressed. Patient was discussed with Dr. Juarez who agrees with admission Vital Signs Temperature 99.5 F 07/11/18 05:32 Pulse Rate 71 07/11/18 05:32 Respiratory Rate 26 07/11/18 05:32 Blood Pressure 156/64 07/11/18 05:32 O2 Sat by Pulse Oximetry 91 07/11/18 05:32 Temperature 99.5 F 07/11/18 05:32 Pulse Rate 76 07/11/18 06:58 Respiratory Rate 18 07/11/18 06:58 Blood Pressure 147/93 07/11/18 06:58 O2 Sat by Pulse Oximetry 91 07/11/18 06:58 Oxygen Delivery Oxygen Delivery Nasal Cannula Shortness of Breath/Dyspnea - Differential Diagnosis Likely: acute exacerbation of chronic obstructive airways disease, congestive heart failure. Unlikely: pneumonia, asthma with exacerbation, pulmonary embolism, pneumothorax, arrhythmia - Medical Records Medical records reviewed: Yes I reviewed the patient's medical records. - Lab Data Lab results reviewed: Yes I reviewed the patient's lab results. Result diagrams: 07/11/18 05:35 07/11/18 05:35 Lab Results 07/11/18 07/11/18 07/11/18 Range/Units 05:35 05:35 05:35 WBC 6.9 (4.3-11.1) K/mcL RBC 4.30 (4.19-5.50) M/mcL Hgb 11.5 L (12.9-16.9) g/dL Hct 37.6 (37.5-50.1) % MCV 87.4 (83.0-100.0) fL MCH 26.7 L (28.0-33.3) pg MCHC 30.6 L (31.6-35.5) g/dL RDW 17.3 H (11.5-14.5) % Plt Count 162 (140-400) K/mcL MPV 9.9 (9.4-12.4) fL Immature Gran % 0.4 (0-4) % Seg Neutrophils % 84.9 % Lymphocytes % 4.9 % Monocytes % 7.5 % Eosinophils % 1.9 % Basophils % 0.4 % Neutrophils # 5.8 (1.6-8.9) K/mcL Lymphocytes # 0.3 L (0.6-4.6) K/mcL Monocytes # 0.5 (0.0-1.3) K/mcL Eosinophils # 0.1 (0.0-0.6) K/mcL Basophils # 0.0 (0.0-0.2) K/mcL PT (9.4-12.1) Seconds INR APTT (26.0-36.0) Seconds Sodium 140 (136-145) mEq/L Potassium 3.8 (3.5-5.1) mEq/L Chloride 111 H (98-107) mEq/L Carbon Dioxide 24 (23-29) mEq/L BUN 34 H (8-23) mg/dL Creatinine 1.58 H (0.70-1.30) mg/dL Est GFR ( Amer) 51 L (> 60) Est GFR (Non-Af Amer) 42 L (> 60) BUN/Creatinine Ratio 22 (6-26) Glucose 144 H (70-105) mg/dL Calculated Osmolality 300 (280-300) Lactic Acid 1.0 (0.5-2.2) mmol/L Calcium 8.9 (8.6-10.3) mg/dL Total Bilirubin 0.5 (0.3-1.0) mg/dL AST 14 (13-39) Units/L ALT 12 (7-52) Units/L Alkaline Phosphatase 75 (34-104) Units/L Troponin I 0.05 H* (< 0.04) ng/mL B-Natriuretic Peptide (Less than 100) pg/mL Serum Total Protein 6.1 L (6.4-8.9) g/dL Albumin 3.8 (3.5-5.7) g/dL Globulin 2.3 L (2.4-3.5) g/dL Albumin/Globulin Ratio 1.7 (1.1-2.2) 07/11/18 07/11/18 Range/Units 05:35 05:35 WBC (4.3-11.1) K/mcL RBC (4.19-5.50) M/mcL Hgb (12.9-16.9) g/dL Hct (37.5-50.1) % MCV (83.0-100.0) fL MCH (28.0-33.3) pg MCHC (31.6-35.5) g/dL RDW (11.5-14.5) % Plt Count (140-400) K/mcL MPV (9.4-12.4) fL Immature Gran % (0-4) % Seg Neutrophils % % Lymphocytes % % Monocytes % % Eosinophils % % Basophils % % Neutrophils # (1.6-8.9) K/mcL Lymphocytes # (0.6-4.6) K/mcL Monocytes # (0.0-1.3) K/mcL Eosinophils # (0.0-0.6) K/mcL Basophils # (0.0-0.2) K/mcL PT 14.1 H (9.4-12.1) Seconds INR 1.3 APTT 31.8 (26.0-36.0) Seconds Sodium (136-145) mEq/L Potassium (3.5-5.1) mEq/L Chloride (98-107) mEq/L Carbon Dioxide (23-29) mEq/L BUN (8-23) mg/dL Creatinine (0.70-1.30) mg/dL Est GFR ( Amer) (> 60) Est GFR (Non-Af Amer) (> 60) BUN/Creatinine Ratio (6-26) Glucose (70-105) mg/dL Calculated Osmolality (280-300) Lactic Acid (0.5-2.2) mmol/L Calcium (8.6-10.3) mg/dL Total Bilirubin (0.3-1.0) mg/dL AST (13-39) Units/L ALT (7-52) Units/L Alkaline Phosphatase (34-104) Units/L Troponin I (< 0.04) ng/mL B-Natriuretic Peptide 2263 H (Less than 100) pg/mL Serum Total Protein (6.4-8.9) g/dL Albumin (3.5-5.7) g/dL Globulin (2.4-3.5) g/dL Albumin/Globulin Ratio (1.1-2.2) - Radiology Data Radiology results reviewed: Yes I reviewed the patient's radiology results. XR/XR chest 1V portable IMPRESSION: Cardiomegaly and pulmonary edema. - EKG Data EKG attestation: Yes I reviewed and interpreted this EKG. EKG shows normal: Reports: sinus rhythm, axis [place]/QRS: Reports: LBBB (Incomplete) Voltage: Reports: c/w LVH Interpretation: Reports: nonspecific ST-T wave changes
[2018-07-11] MEDS ORDERED: *HR* Dextrose 50 % in Water (Syg) 50 ML SYRINGE IVP PRN ×2 (07:58→10:56)
[2018-07-11] MEDS ORDERED: D5% in Water 1,000 ML IVC PRN ×2 (07:58→10:56)
[2018-07-11] MEDS ORDERED: Dextrose Gel 15 GM/37.5 ML TUBE PO PRN ×4 (07:58→10:56)
[2018-07-11] MEDS: Ipratropium/Albuterol Neb 3 ML IH SCH ×3 (08:19→22:00)
[2018-07-11] MEDS: Insulin LISPRO 300 UNITS/3 ML VIAL SQ SCH ×4 (11:17→16:27)
[2018-07-11] MEDS: Diltiazem CD (24hr) 120 MG CAPSULE PO SCH (11:26)
[2018-07-11] MEDS: hydrALAZINE 25 MG TABLET PO SCH ×3 (11:26→21:13)
[2018-07-11] MEDS: *HR* SitaGLIPtin 25 MG TABLET PO SCH (11:26)
[2018-07-11] MEDS: methylPREDNISolone 125 MG/2 ML VIAL IVP SCH ×2 (11:27→16:16)
[2018-07-11] MEDS: Metoprolol XL (24 HR) Succ 50 MG TAB.ER.24H PO SCH (11:27)
[2018-07-11] MEDS ORDERED: Insulin LISPRO 300 UNITS/3 ML VIAL SQ SCH ×3 (11:30→21:00)
--- NOTE | 2018-07-11 13:22 | Electrocardiograph Report ---
[place] [id number] Test Date: 2018-07-11 Pat Name: Ana France Department: EDG1 Room: 115 Gender: M Services Tech: : 1930 Requested By: Wes Ibanez Order Number: [id number] Reading MD: Madhu Bertrand Measurements Intervals [place] Rate: 73 P: 35 IL: 219 QRS: 12 QRSD: 117 T: 27 QT: 480 QTc: 529 Interpretive Statements Sinus rhythm Prolonged IL interval Incomplete left bundle branch block Probable LVH with secondary repol abnrm Prolonged QT interval Electronically Signed On 07-11-2018 13:20:56 EDT by Madhu Bertrand
--- NOTE | 2018-07-11 13:33 | Internal Med History&Physical ---
Date of Encounter: 07/11/18 Time of Encounter: 14:26 Assessment and Plan (1) Acute on chronic systolic congestive heart failure Current visit: Yes Status: Acute He has an elevated BMP chest x-rays consistent with CHF. He had does have edema. He did receive Lasix in the emergency room will continue to give him IV Lasix oxygen as needed he is on home oxygen. He is oriented on an CHAPIS inhibitor. We will have to watch his renal function as he does have chronic renal insufficiency while giving him the IV Lasix (2) Diabetes mellitus, type 2 Current visit: Yes Status: Chronic Will continue his home medication will give him sliding scale and diabetic diet he has not a well-controlled diabetic at home he does not check his sugars ever he just sometimes takes his insulin. 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 He is on diltiazem for rate control. He does not take oral anticoagulation as he has had numerous GI bleeds requiring blood transfusions hemoglobins to 3 in the past. He did not do well on Eliquis he did not do well on Coumadin. Qualifiers: Atrial fibrillation type: paroxysmal Qualified Code(s): I48.0 - Paroxysmal atrial fibrillation (4) Hypertension Current visit: Yes Status: Chronic Little bit elevated we will continue his home medications for now as he is getting IV Lasix so this may drop his blood pressure. So I will not make furthe r adjustments other than IV Lasix to his medication Qualifiers: Hypertension type: essential hypertension Qualified Code(s): I10 - Essential (primary) hypertension (5) COPD (chronic obstructive pulmonary disease) Current visit: Yes Status: Chronic This is chronically an issue for him is chronically on home oxygen. Continue nebulizers give him some Solu-Medrol as he was wheezing in the emergency room he does not have a fever he does not have an elevated white count so will not initiate antibiotics at this time. Qualifiers: Emphysema type: unspecified Qualified Code(s): J43.9 - Emphysema, unspecified (6) Mixed hyperlipidemia Current visit: No Status: Chronic Continue his home medication (7) CHF (congestive heart failure) Current visit: Yes Status: Chronic Qualifiers: Heart failure type: combined systolic and diastolic Heart failure chronicity: acute on chronic Qualified Code(s): I50.43 - Acute on chronic combined systolic (congestive) and diastolic (congestive) heart failure (8) PIERO (obstructive sleep apnea) Current visit: Yes Status: Chronic will let him use his home cpap (9) Aortic stenosis Current visit: Yes Status: Chronic Qualifiers: Cardiac valve disease etiology: etiology unspecified Qualified Code(s): I35.0 - Nonrheumatic aortic (valve) stenosis (10) AVM (arteriovenous malformation) of colon Current visit: No Status: Chronic he has had issues in the past with GI bleed we will continue to follow his hemoglobin and watch for anemia. (11) Chronic kidney disease Current visit: Yes Status: Chronic He is at baseline with his creatinine currently will continue to follow this as he is getting IV Lasix to help diurese him for a CHF exacerbation Qualifiers: Chronic kidney disease stage: stage 3 (moderate) Qualified Code(s): N18.3 - Chronic kidney disease, stage 3 (moderate) (12) DVT prophylaxis Current visit: No Status: Acute Give him Lovenox as he has had a DVT in the past and is high risk for a DVT we will have to carefully balance that with his history of GI bleeds. (13) Elevated troponin Current visit: Yes Status: Resolved Elevated on admission will check serial troponins could be related to chronic renal insufficiency and cardiac strain with a CHF exacerbation. Internal Medicine - H&P: HPI Chief complaint: sob Admitted From: Home History of present illness: Mr. France is a 87 year old male Past medical history of CHF acute on chronic diastolic and systolic dysfunction, A. fib, and COPD presents to the emergency room after he had trouble breathing this morning. His legs been swollen but they are typically usually swollen. He been using a CPAP at home could not catch his breath called the squad they brought him in here he was evaluated found to have an elevated BMP of over 2000 he received IV Lasix in the emergency room [facility] [place]. He was admitted for CHF exacerbation. Have an elevated troponin in the emergency room 0.05 he has had elevated troponins in the past this could be due to cardiac strain but will need to continue to follow that. He says he had mowed the grass yesterday and could not get to sleep because had trouble breathing from that point on. He was coughing he was wheezing he had no sputum. He did not have a fever he did not have any cold sweats. He did have a runny nose after mowing the grass. He typically did not have that. He denies chest pain palpitations. He has not been around anybody who is ill he has not traveled he has not had any recent urinary or bowel bleeding. He is resting comfortably in the bed Past Med Surg Social Fam HX - Past Medical History Medical history: arthritis, atrial fibrillation, CHF, COPD, coronary artery disease, DVT, diabetes, GERD, GI bleed, glaucoma, hyperlipidemia, hypertension, peripheral artery disease, renal disease, valvular heart disease (Uric stenos is), other (DVT obstructive sleep apnea dilated aortic root obesity) Additional medical history: implanted stimulator in back Psychiatric history: depression - Past Surgical History Surgical History: colectomy (For AVMs numerous colonoscopies), IVC Filter (121), tonsillectomy, other (Simulator in his back 01/05 2015, EGD and colonoscopies for GI bleeds a gastric ulcer polyp clipped in May 2017) Additional surgical history: Colon resection, Mole removals, Stimulator in back - Social History Smoking Status: Former smoker Smokeless Tobacco Status: No Alcohol use: none, occasionally Drug use: none Occupational status: retired Current living situation: Home - Independent, With Family - Family History Mother Living Status: Hx Family Neuromuscular Disorders: Yes (Cerebral hemorrhage at age 40) Father Living Status: Internal Medicine - H&P: Meds Albuterol Sulfate [Albuterol Inhaler] 2 puff IH Q4H PRN 01/15/16 [History] Atorvastatin Calcium [Lipitor] 20 mg PO DAILY 01/15/16 [History] Potassium Chloride [Klor-Con Sprinkle] 8 meq PO TID 01/15/16 [History] Sitagliptin Phosphate [Januvia] 50 mg PO DAILY 01/15/16 [History] Citalopram [CeleXA] 20 mg PO DAILY tablet 03/11/16 [Rx] Metoprolol XL (24 HR) Succ [Toprol Xl] 100 mg PO DAILY tab.er.24h 03/11/16 [Rx] Allopurinol [Zyloprim 100 MG] 100 mg PO BID 01/27/17 [History] Omeprazole [PriLOSEC] 40 mg PO DAILY 01/27/17 [History] Isosorbide DInitrate [Isosorbide Dinitrate] 20 mg PO TID 05/31/17 [History] hydrALAZINE [HydrALAZINE] 50 mg PO TID 05/31/17 [History] Lisinopril [Zestril] 5 mg PO DAILY 07/20/17 [History] Ferrous Sulfate [Iron] 325 mg PO TID 07/21/17 [History] Furosemide [Lasix] 80 mg PO BID 07/21/17 [History] dilTIAZem HCl [Diltiazem 24Hr ER] 240 mg PO DAILY 07/21/17 [History] Insulin ASPART [NovoLOG] 6 unit SQ BID 12/24/17 [History] Allergy/AdvReac Type Severity Reaction Status Date / Time NSAIDS (Non-Steroidal AdvReac Unknown Nose Bleed Verified 07/11/18 05:49 Anti-Inflamma aspirin [ASA] AdvReac Nose Bleed Verified 07/11/18 05:49 nsaids AdvReac Nose Bleed Uncoded 07/11/18 05:49 All Systems PM: A 10-system review of systems was performed and is negative for pertinent findings except as documented above in the HPI. - Constitutional Constitutional: fatigue, no chills, no fever(s), no falls, no weakness - EENT Eyes: no change in vision Nose, mouth and throat: nasal discharge, no sore throat - Cardiovascular Cardiovascular ROS IM: dyspnea, edema, no chest pain, no lightheadedness, no palpitations, no syncope - Respiratory Respiratory: cough, dyspnea, dyspnea on exertion, wheezing - Gastrointestinal Gastrointestinal: no abdominal pain, no constipation, no diarrhea, no hematochezia, no loose stools, no melena, no nausea, no vomiting - Genitourinary Genitourinary ROS male: no dysuria, no hematuria, no urinary incontinence - Musculoskeletal Musculoskeletal ROS IM: no muscle cramps - Integumentary Integumentary IM: no pruritus, no rash - Neurological Neurological ROS: no numbness - Constitutional Vitals: Temp Pulse Resp BP Pulse Ox 98.7 F 85 16 161/70 92 07/11/18 11:23 07/11/18 11:23 07/11/18 11:23 07/11/18 11:23 07/11/18 11:23 General appearance: Present: A&O X 2 (Does not know the date), morbidly obese, no acute distress. Absent: answers questions appropriately (He answers all questions with jokes on not sure if he is confused but he always answers questions this way for the past several years) - Neck Neck exam general surgery: Present: supple, trachea midline. Absent: lymphadenopathy - Respiratory Respiratory exam: Present: prolonged expiratory phase, rales (Bilateral bases), wheezes. Absent: accessory muscle use - Cardiovascular Cardiovascular exam: Present: RRR, systolic murmur - GI/Abdominal GI/Abdominal exam: Present: normal bowel sounds, soft, no peritoneal signs. Absent: guarding, mass, rebound, tenderness - Extremities Exam Extremities exam: Present: pedal edema (Bilateral lower extremity) - Skin Skin exam: Present: dry, warm. Absent: rash Internal Med - H&P Results - Labs CBC & Chem 7: 07/11/18 05:35 07/11/18 05:35 Labs: Short CBC 07/11/18 Range/Units 05:35 WBC 6.9 (4.3-11.1) K/mcL Hgb 11.5 L (12.9-16.9) g/dL Hct 37.6 (37.5-50.1) % Plt Count 162 (140-400) K/mcL Neutrophils # 5.8 (1.6-8.9) K/mcL BMP 07/11/18 05:35 Sodium 140 Potassium 3.8 Chloride 111 H Carbon Dioxide 24 BUN 34 H Creatinine 1.58 H Glucose 144 H Calcium 8.9 Cardiac Enzymes 07/11/18 Range/Units 05:35 Troponin I 0.05 H* (< 0.04) ng/mL Liver Function 07/11/18 Range/Units 05:35 Total Bilirubin 0.5 (0.3-1.0) mg/dL AST 14 (13-39) Units/L ALT 12 (7-52) Units/L Alkaline Phosphatase 75 (34-104) Units/L Albumin 3.8 (3.5-5.7) g/dL - Impressions ITS Impressions Chest X-Ray 07/11/18 05:41 IMPRESSION: Cardiomegaly and pulmonary edema. D/ / Yazan Helm MD / Yazan Helm MD Interpreting Provider: Yazan Helm MD
[2018-07-11] MEDS ORDERED: Furosemide 40 MG/4 ML VIAL IVP SCH (18:00)
[2018-07-11] MEDS: Furosemide 40 MG/4 ML VIAL IVP SCH (18:45)
[2018-07-12] MEDS: Furosemide 40 MG/4 ML VIAL IVP SCH ×3 (00:02→12:07)
[2018-07-12] MEDS: methylPREDNISolone 125 MG/2 ML VIAL IVP SCH ×2 (00:02→08:21)
[2018-07-12] MEDS: Ipratropium/Albuterol Neb 3 ML IH SCH ×2 (04:10→09:45)
[2018-07-12 04:56] LABS: Hematocrit 36.1 % (37.5-50.1); Immature Granulocytes % 0.3 % (0-4); Lymphocytes # 0.1 K/mcL (0.6-4.6); Lymphocytes % 3.4 %; Mean Corpuscular HGB Conc 30.5 g/dL (31.6-35.5); Mean Corpuscular Hemoglobin 26.4 pg (28.0-33.3); Mean Corpuscular Volume 86.6 fL (83.0-100.0); Mean Platelet Volume 10.2 fL (9.4-12.4); Monocytes % 0.5 %; Neutrophils # 3.7 K/mcL (1.6-8.9); Platelet Count 148 K/mcL (140-400); Red Blood Count 4.17 M/mcL (4.19-5.50); Red Cell Distribution Width 17.2 % (11.5-14.5); Segmented Neutrophils % 95.8 %; White Blood Count 3.9 K/mcL (4.3-11.1)
[2018-07-12 05:14] LABS: Potassium 3.8 mEq/L (3.5-5.1)
[2018-07-12] MEDS ORDERED: *HR* Enoxaparin 30 MG/0.3 ML SYRINGE SQ SCH (07:00)
[2018-07-12 07:11] VITALS: BP 155/65
[2018-07-12] MEDS: Insulin LISPRO 300 UNITS/3 ML VIAL SQ SCH ×3 (08:22→12:07)
[2018-07-12] MEDS: Diltiazem CD (24hr) 120 MG CAPSULE PO SCH (08:24)
[2018-07-12] MEDS: Metoprolol XL (24 HR) Succ 50 MG TAB.ER.24H PO SCH (08:24)
[2018-07-12] MEDS: *HR* SitaGLIPtin 25 MG TABLET PO SCH (08:24)
[2018-07-12] MEDS: hydrALAZINE 25 MG TABLET PO SCH (08:24)
--- NOTE | 2018-07-12 10:24 | Internal Med Progress Note ---
Date of Encounter: 07/12/18 - Assessment and plan (1) Acute on chronic systolic congestive heart failure Current Visit: Yes Status: Acute Assessment and plan: his bnp is even more elevated today. will continue the lasix, acei (2) Diabetes mellitus, type 2 Current Visit: Yes Status: Chronic Assessment and plan: elevated today with the solumedrol. 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 (3) Atrial fibrillation Current Visit: Yes Status: Chronic Assessment and plan: rate controlled on cardizem, he is not anticoagulated due to gi bleeds even with asa Qualifiers: Atrial fibrillation type: paroxysmal Qualified Code(s): I48.0 - Paroxysmal atrial fibrillation (4) Hypertension Current Visit: Yes Status: Chronic Assessment and plan: has been stable Qualifiers: Hypertension type: essential hypertension Qualified Code(s): I10 - Essential (primary) hypertension (5) COPD (chronic obstructive pulmonary disease) Current Visit: Yes Status: Chronic Assessment and plan: with acute exacerbation on solumedrol, o2 chronically, nebs Qualifiers: Emphysema type: unspecified Qualified Code(s): J43.9 - Emphysema, unspecified (6) Mixed hyperlipidemia Current Visit: No Status: Chronic Assessment and plan: home medication (7) CHF (congestive heart failure) Current Visit: Yes Status: Chronic Assessment and plan: with acute chf exacerbation. will continue the iv lasix, continue his abdoul Qualifiers: Heart failure type: combined systolic and diastolic Heart failure chronicity: acute on chronic Qualified Code(s): I50.43 - Acute on chronic combined systolic (congestive) and diastolic (congestive) heart failure (8) PIERO (obstructive sleep apnea) Current Visit: Yes Status: Chronic Assessment and plan: home cpap (9) Aortic stenosis Current Visit: Yes Status: Chronic Qualifiers: Cardiac valve disease etiology: etiology unspecified Qualified Code(s): I35.0 - Nonrheumatic aortic (valve) stenosis (10) AVM (arteriovenous malformation) of colon Current Visit: No Status: Chronic Assessment and plan: hb stable will continue to watch (11) Chronic kidney disease Current Visit: Yes Status: Chronic Assessment and plan: creatin a little more elevated today with the lasix will continue to follow Qualifiers: Chronic kidney disease stage: stage 3 (moderate) Qualified Code(s): N18.3 - Chronic kidney disease, stage 3 (moderate) (12) DVT prophylaxis Current Visit: No Status: Acute Assessment and plan: lovenox (13) Elevated troponin Current Visit: Yes Status: Resolved Assessment and plan: likely due to cardiac strain and renal insuff. now down to 0.04 - Constitutional Vitals: Temp Pulse Resp BP Pulse Ox 97.7 F 75 18 155/65 97 07/12/18 07:10 07/12/18 07:10 07/12/18 09:45 07/12/18 07:10 07/12/18 09:45 General appearance: Present: A&O X 2 (Does not know the date), morbidly obese, no acute distress. Absent: answers questions appropriately (He answers all questions with jokes on not sure if he is confused but he always answers questions this way for the past several years) Internal Medicine: Result - Labs CBC & Chem 7: 07/12/18 04:25 07/12/18 04:25 Labs: Short CBC 07/12/18 Range/Units 04:25 WBC 3.9 L (4.3-11.1) K/mcL Hgb 11.0 L (12.9-16.9) g/dL Hct 36.1 L (37.5-50.1) % Plt Count 148 (140-400) K/mcL Neutrophils # 3.7 (1.6-8.9) K/mcL BMP 07/12/18 04:25 Sodium 147 H Potassium 3.8 Chloride 113 H Carbon Dioxide 27 BUN 35 H Creatinine 1.70 H Glucose 192 H Calcium 9.0 Cardiac Enzymes 07/11/18 07/11/18 07/12/18 Range/Units 14:15 22:00 04:25 Troponin I 0.05 H* 0.04 H* 0.04 H* (< 0.04) ng/mL - ABG Interpretation ABG results: PT/INR, D-dimer PT 14.1 Seconds (9.4-12.1) H 07/11/18 05:35 - Impressions Impressions Chest X-Ray 07/12/18 07:00 IMPRESSION: 1. Interval improvement in pulmonary edema since 07/11/2018. Trace bilateral pleural effusions. 2. No focal consolidation or pneumothorax. 3. Persistently enlarged cardiomediastinal silhouette. D/ / Raffi Jack MD / Raffi Jack MD Interpreting Provider: Raffi Jack MD Consult Discharge Plan - Plan Referrals: Shira Chavarria MD [Primary Care Provider] -
--- NOTE | 2018-07-12 14:01 | Discharge Summary ---
Orders not resulted at time of discharge: Pending orders 07/11/18 05:35 Culture,Blood [] Stat Date of Encounter: 07/13/18 Time of Encounter: 12:40 - Discharge Diagnosis (1) Acute on chronic systolic congestive heart failure Priority: Primary Status: Acute Comments: Use IV Lasix he did have diuresis BMP did elevate but he was feeling better he was wanting to go home. I discussed that he did have to be able take care of himself be able to walk and ambulate and shower he got up shower walk the halls and wanted to go home he was sent home on his home diuretic instructed not to miss any doses. He has had some COPD exacerbation with this so he had a prednisone taper sent as well. He was feeling much better on the day of discharge (2) Diabetes mellitus, type 2 Priority: Secondary Status: Chronic Comments: But sugars did elevate to get sliding scale insulin but that was likely due to the Solu-Medrol. 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 Qualifiers: Atrial fibrillation type: paroxysmal Qualified Code(s): I48.0 - Paroxysmal atrial fibrillation (4) Hypertension Priority: Secondary Status: Chronic Comments: stable this hospitalization on home medications Qualifiers: Hypertension type: essential hypertension Qualified Code(s): I10 - Essential (primary) hypertension (5) COPD (chronic obstructive pulmonary disease) Priority: Secondary Status: Chronic Comments: COPD exacerbation he was given duo nebs he remained on his home oxygen he was given Solu-Medrol while he was here to be sent home on oral prednisone taper. Qualifiers: Emphysema type: unspecified Qualified Code(s): J43.9 - Emphysema, unspecified (6) Mixed hyperlipidemia Priority: Secondary Status: Chronic Comments: sTable in his home medication (7) CHF (congestive heart failure) Priority: Secondary Status: Chronic Qualifiers: Heart failure type: combined systolic and diastolic Heart failure chronicity: acute on chronic Qualified Code(s): I50.43 - Acute on chronic combined systolic (congestive) and diastolic (congestive) heart failure (8) PIERO (obstructive sleep apnea) Priority: Secondary Status: Chronic Comments: home CPAP (9) Aortic stenosis Priority: Secondary Status: Chronic Qualifiers: Cardiac valve disease etiology: etiology unspecified Qualified Code(s): I35.0 - Nonrheumatic aortic (valve) stenosis (10) AVM (arteriovenous malformation) of colon Priority: Secondary Status: Chronic Comments: He did not have Any lowering of his hemoglobin or any GI bleed with this admission (11) Chronic kidney disease Priority: Secondary Status: Chronic Comments: did elevate a little bit with the IV Lasix but is still around his baseline. We will continue to follow we will see him in the office next week and repeat a BMP Qualifiers: Chronic kidney disease stage: stage 3 (moderate) Qualified Code(s): N18.3 - Chronic kidney disease, stage 3 (moderate) (12) DVT prophylaxis Priority: Secondary Status: Acute Comments: Lovenox. (13) Elevated troponin Priority: Secondary Status: Resolved Comments: He was 0.05 twice then 0.04 he often has elevated troponin this is around baseline for him. Likely due to cardiac strain and renal insufficiency. Hospital course: Mr. France is a 87 year old male Presented with a COPD exacerbation of CHF on chronic CHF exacerbation. He was given IV Lasix Solu-Medrol mikaylao figueroa as home oxygen he did improve he wanted to go home he was able to get up walk the halls he took a shower he was not short of breath he did well with this is bnp did elevate but he was clinically better his edema in his legs were better. He was sent home with his home Lasix dose. He also did not have any wheezing on the day of discharge he was sent home with a prednisone taper his sugars did elevate while he was here on Solu-Medrol taper he did receive sliding scale insulin he is noncompliant diabetic he does not check his sugars is moist his insulin. Discussed that he needs to be compliant with that. His blood pressure was low but elevated bili did come down with the IV Lasix for continued follow that as an outpatient. He has a history of GI bleeds he did not have any bleeding with this admission. He has a history of a DVT but had bleeding in the past with anticoagulation is of an IVC filter he did not have any new changes with regard to this. He was discharged home in stable condition a follow-up appointment was made Discharge discussed with: patient - Time Spent with Patient Total time spent providing and/or coordinating discharge services: - Discharge Medications Prescriptions: New PredniSONE [Deltasone] 60 mg PO DAILY #20 tablet Ipratropium/Albuterol Neb [Duoneb] 3 ml IH [id number] inhsol Continued Albuterol Sulfate [Albuterol Inhaler] 2 puff IH Q4H PRN PRN Reason: Shortness Of Breath Sitagliptin Phosphate [Januvia] 50 mg PO DAILY Potassium Chloride [Klor-Con Sprinkle] 8 meq PO TID Atorvastatin Calcium [Lipitor] 20 mg PO DAILY Omeprazole [PriLOSEC] 40 mg PO DAILY Allopurinol [Zyloprim 100 MG] 100 mg PO BID dilTIAZem HCl [Diltiazem 24Hr ER] 240 mg PO DAILY Ferrous Sulfate [Iron] 325 mg PO TID Furosemide [Lasix] 80 mg PO BID Citalopram [CeleXA] 20 mg PO DAILY tablet Metoprolol XL (24 HR) Succ [Toprol Xl] 100 mg PO DAILY tab.er.24h Isosorbide DInitrate [Isosorbide Dinitrate] 20 mg PO TID hydrALAZINE [HydrALAZINE] 50 mg PO TID Lisinopril [Zestril] 5 mg PO DAILY Insulin ASPART [NovoLOG] 6 unit SQ BID Home Medications: Albuterol Sulfate [Albuterol Inhaler] 2 puff IH Q4H PRN 01/15/16 [History] Atorvastatin Calcium [Lipitor] 20 mg PO DAILY 01/15/16 [History] Potassium Chloride [Klor-Con Sprinkle] 8 meq PO TID 01/15/16 [History] Sitagliptin Phosphate [Januvia] 50 mg PO DAILY 01/15/16 [History] Citalopram [CeleXA] 20 mg PO DAILY tablet 03/11/16 [Rx] Metoprolol XL (24 HR) Succ [Toprol Xl] 100 mg PO DAILY tab.er.24h 03/11/16 [Rx] Allopurinol [Zyloprim 100 MG] 100 mg PO BID 01/27/17 [History] Omeprazole [PriLOSEC] 40 mg PO DAILY 01/27/17 [History] Isosorbide DInitrate [Isosorbide Dinitrate] 20 mg PO TID 05/31/17 [History] hydrALAZINE [HydrALAZINE] 50 mg PO TID 05/31/17 [History] Lisinopril [Zestril] 5 mg PO DAILY 07/20/17 [History] Ferrous Sulfate [Iron] 325 mg PO TID 07/21/17 [History] Furosemide [Lasix] 80 mg PO BID 07/21/17 [History] dilTIAZem HCl [Diltiazem 24Hr ER] 240 mg PO DAILY 07/21/17 [History] Insulin ASPART [NovoLOG] 6 unit SQ BID 12/24/17 [History] Ipratropium/Albuterol Neb [Duoneb] 3 ml IH [id number] inhsol 07/12/18 [Rx] PredniSONE [Deltasone] 60 mg PO DAILY #20 tablet 07/12/18 [Rx] Allergies/Adverse Reactions: Allergy/AdvReac Type Severity Reaction Status Date / Time NSAIDS (Non-Steroidal AdvReac Unknown Nose Bleed Verified 07/11/18 05:49 Anti-Inflamma aspirin [ASA] AdvReac Nose Bleed Verified 07/11/18 05:49 Date of admission: 07/11/18 08:10 Primary care physician: Shira Chavarria MD - Constitutional Vitals: Temp Pulse Resp BP Pulse Ox 97.7 F 75 18 155/65 97 07/12/18 07:10 07/12/18 07:10 07/12/18 09:45 07/12/18 07:10 07/12/18 09:45 General appearance: Present: A&O X 2 (Does not know the date), morbidly obese, no acute distress. Absent: answers questions appropriately (He answers all questions with jokes on not sure if he is confused but he always answers questions this way for the past several years) - Head Head exam: Present: atraumatic, normocephalic - Neck Neck exam general surgery: Present: supple, trachea midline. Absent: lymphadenopathy, tenderness - Respiratory Respiratory exam: Present: CTAB - Cardiovascular Cardiovascular exam: Present: irregular rhythm, systolic murmur - GI/Abdominal GI/Abdominal exam: Present: normal bowel sounds, soft, no peritoneal signs. Absent: guarding, mass, rebound, tenderness - Extremities Exam Extremities exam: Present: pedal edema (but mostly reolved), warm - Skin Skin exam: Present: dry, warm. Absent: rash - Patient Status Disposition: Home, Self-Care Condition: Fair Functional capacity at discharge: uses cane/walker Overall status at discharge: patient is progressing back to baseline - Discharge Instructions Instructions: Heart Failure (DC) Follow Up With: Shira Chavarria MD [Primary Care Provider] - 07/20/18 11:00 am
[2018-07-12] MEDS ORDERED: Furosemide 40 MG/4 ML VIAL IVP SCH (18:21)
== END 2018-07-12 14:48 | disposition home or self-care (01) ==
LOC: EMEROOGRE 05:23 → INPGRE 05:23
PROVIDERS: ADMIT Family Medicine; ATTEND Family Medicine